=== PATIENT | female | born 1995 | race Caucasian/White ===

== ENCOUNTER 2022-10-20 16:09 | Emergency (ER) | payer OTHER, MEDICAID, SELFPAY ==
[2022-10-20 16:20] VITALS: BP 138/84; PULSE 100; RESP 19; TEMP 36.6; O2SAT 99; BMI 29.2
--- NOTE | 2022-10-20 16:21 | ED_ITS ---
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 She was cutting boxes with her right hand, the blade slipped and cut a 2 inch lac to her distal left forearm. She denies weakness, numbness, tingling in the hand or fingers. She is right hand dominant. She is UTD on her tetanus shot. No other injuries. <SAUL Chavira - Last Filed: 10/20/22 18:24> Onset (ago): minute(s) <SAUL Chavira - Last Filed: 10/20/22 18:24> Extremity Location: left: forearm <SAUL Chavira - Last Filed: 10/20/22 18:24> Place: work <SAUL Chavira - Last Filed: 10/20/22 18:24> Patient tetanus UTD: Yes <SAUL Chavira - Last Filed: 10/20/22 18:24> Context: accidental <SAUL Chavira - Last Filed: 10/20/22 18:24> Associated symptoms: pain <SAUL Chavira - Last Filed: 10/20/22 18:24> Treatments prior to arrival: bandage <SAUL Chavira - Last Filed: 10/20/22 18:24> Related Data Allergies/Adverse Reactions: Allergies Allergy/AdvReac Type Severity Reaction Status Date / Time No Known Allergies Allergy Unverified 05/29/20 19:02 [No Known Allergies*] <Rosalba Torres NP - Last Filed: 10/20/22 16:24> Review of Systems Review of Systems: Yes all other systems are reviewed and are negative <SAUL Chavira - Last Filed: 10/20/22 18:24> FOR[facility]LY [facility] Social History Social History: Social History Advance Directives: No Advance Directives Information Provided: No <Rosalba Torres NP - Last Filed: 10/20/22 16:24> Physical Exam Vital Signs: Vital Signs: Last Vital Signs Temp 98 F 10/20/22 16:20 Pulse 100 10/20/22 16:20 Resp 19 10/20/22 16:20 BP 138/84 10/20/22 16:20 Pulse Ox 99 10/20/22 16:20 O2 Del Method 10/20/22 16:20 BMI result Body Mass Index 29.2 <Rosalba Torres NP - Last Filed: 10/20/22 16:24> Vital Signs: Last Vital Signs Temp 98 F 10/20/22 16:20 Pulse 100 10/20/22 16:20 Resp 19 10/20/22 16:20 BP 138/84 10/20/22 16:20 Pulse Ox 99 10/20/22 16:20 O2 Del Method 10/20/22 16:20 BMI result Body Mass Index 29.2 <SAUL Chavira - Last Filed: 10/20/22 18:24> Appearance: Alert. Oriented X3. No acute distress. HEENT: normal inspection CVS: Normal heart rate and rhythm. Pulses normal. Respiratory: No respiratory distress. Skin: Skin warm and dry. Normal skin color. Normal skin turgor. No rashes. Extremities: volar aspect of the distal left forearm with a 2 inch superficial laceration with exposed adipose tissue, no active bleeding, no visible tendon. normal ROM of the digits and hand. 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 Neuro: Oriented X 3. No motor deficit. No sensory deficit. <SAUL Chavira - Last Filed: 10/20/22 18:24> Course Course Course Narrative: This is a rapid medical exam. Deferred additional HPI, ROS, PE to primary provider. 27 yo female healthy, right handed here with laceration to left wrist from jukebox coin collector while working. Tetanus shot UTD. 3cm laceration noted to left volar wrist which will need suture placement. VSS <Rosalba Torres NP - Last Filed: 10/20/22 16:24> Reevaluation(s) Reevaluation #1: tolerated lac repair well. wound care counseled. stable for d/c home. <SAUL Chavira - Last Filed: 10/20/22 18:24> Medications Administered Discontinued Medications Generic Name Dose Route Start Last Admin Trade Name Freq PRN Reason Stop Dose Admin Lidocaine HCl 20 ml 10/20/22 17:17 10/20/22 17:38 Lidocaine Hcl 1 % 20 Ml Vial SUBCUT 10/20/22 17:18 20 ml ONCE ONE Administration <Rosalba Torres NP - Last Filed: 10/20/22 16:24> Medications Administered Discontinued Medications Generic Name Dose Route Start Last Admin Trade Name Freq PRN Reason Stop Dose Admin Lidocaine HCl 20 ml 10/20/22 17:17 10/20/22 17:38 Lidocaine Hcl 1 % 20 Ml Vial SUBCUT 10/20/22 17:18 20 ml ONCE ONE Administration <SAUL Chavira - Last Filed: 10/20/22 18:24> Medical Decision Making Differential Diagnosis Differential Diagnoses: The differential diagnosis associated with the presentation includes <SAUL Chavira - Last Filed: 10/20/22 18:24> superficial laceration, deep laceration, tendon injury, contaminated wound <SAUL Chavira - Last Filed: 10/20/22 18:24> Prescription Management I considered prescription management with: Antibiotic <SAUL Chavira - Last Filed: 10/20/22 18:24> Procedures Laceration Laceration 1: Site: penis <SAUL Chavira Last Filed: 10/20/22 18:24> Side (If applicable): left <SAUL Chavira Last Filed: 10/20/22 18:24> Size (cm): 3.5 <SAUL Chavira - Last Filed: 02/08/23 18:24> Description: linear <SAUL Chavira - Last Filed: 10/20/22 18:24> Depth: simple, single layer <SAUL Chavira Last Filed: 10/20/22 18:24> Local Anesthetic: lidocaine 1% <SAUL Chavira Last Filed: 10/20/22 18:24> Amount of anesthesia used (mL): 3 <SAUL Chavira Last Filed: 10/20/22 18:24> Pre-repair: wound explored and irrigated extensively <SAUL Chavira Last Filed: 10/20/22 18:24> Skin layer closed with: nylon <SAUL Chavira Last Filed: 10/20/22 18:24> Size (cm): 5-0 <SAUL Chavira Last Filed: 10/20/22 18:24> Number of sutures: 7 <SAUL Chavira Last Filed: 10/20/22 18:24> Technique: simple, interrupted <SAUL Chavira Last Filed: 10/20/22 18:24> Critical Care Time Critical Care Time Critical Care Time: No <SAUL Chavira Last Filed: 10/20/22 18:24> Discharge Plan Discharge Clinical Impression: Laceration <Rosalba Torres NP - Last Filed: 10/20/22 16:24> Patient Disposition: Home, Self-Care <HOME Prater Last Filed: 10/20/22 16:24> Instructions: Laceration (ED) <HOME Prater Last Filed: 10/20/22 16:24> Additional Instructions: You will need your stitches out in 7-10 days. See you doctor for this or come back to the ER and we will remove them. Do not get wet for 24 hours, after that you can briefly wash with soap and water then pat dry. Use bacitracin1 x per day. Allow open to air for several hours a day to prevent the wound from being too moist. Keep wound clean and covered when out and about. Use ice to the area several times per day and take tylenol/motrin as needed for pain. If you develop signs of infection including increased pain, swelling, redness or drainage of pus come back to the ER for further evaluation. <Rosalba Torres NP - Last Filed: 10/20/22 16:24> Interventions: ED Discharge Assessment Last Done: 10/20/22 18:11 <Rosalba Torres NP - Last Filed: 10/20/22 16:24> Discharge Date/Time: 10/20/22 18:11 <Rosalba Torres NP - Last Filed: 10/20/22 16:24>
[2022-10-20] MEDS: Lidocaine HCl 1 % 20 ML VIAL SUBCUT (17:38)
== END 2022-10-20 18:11 | disposition home or self-care (01) ==
PROVIDERS: Emergency Provider Emergency Medicine; PCP Internal Medicine Nephrology
DX: S51.812A Laceration without foreign body of left forearm, initial encounter (principal); W27.8XXA Contact with other nonpowered hand tool, initial encounter; Y93.89 Activity, other specified; Y92.511 Restaurant or cafe as the place of occurrence of the external cause; Y99.0 Civilian activity done for income or pay
CPT/HCPCS: 12002; 99282; 99284

== ENCOUNTER 2022-10-30 10:12 | Emergency (ER) | payer OTHER, MEDICAID, SELFPAY ==
--- NOTE | 2022-10-30 10:42 | ED.WOUNDLAC ---
HPI - Wound/Laceration General Stated Complaint: suture removal work related Time Seen by Provider: 10/30/22 10:33 Source: patient Mode of arrival: ambulatory Limitations: no limitations History of Present Illness HPI narrative: Patient is a 27-year-old female who presents emergency department for suture removal. 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 Seven stitches were placed. She has been applying bacitracin to the area. Denies fevers, chills, redness, swelling, pain, drainage. Related Data Allergies Allergy/AdvReac Type Severity Reaction Status Date / Time No Known Allergies Allergy Unverified 05/29/20 19:02 [No Known Allergies*] Review of Systems Review of Systems: Yes all other systems are reviewed and are negative [facility] Past Medical History Attestation statement: The following information was validated with the patient. Source: old records reviewed Social History Social History Advance Directives: No Advance Directives Information Provided: No Physical Exam Vital Signs: Appearance: Alert.?Oriented to person, place and time. No acute distress.?Normal affect. Neck: Normal inspection.? Neck supple.?? CVS: Heart sounds normal. Normal heart rate and rhythm.? Pulses normal.?? Respiratory: No respiratory distress.? Lung sounds clear to auscultation bilaterally?? Skin: Skin warm and dry.? Normal skin color.? Left forearm laceration without signs of infection, 7 sutures are intact Neuro: Moves all extremities spontaneously. Sensation intact bilaterally. Ambulates with normal steady gait. Medical Decision Making Medical Decision Making MDM Narrative: Patient is a 27-year-old female who presents emergency department for suture removal. Left forearm laceration that was repaired 10/20/2022 with 7 sutures is free from signs of infection. At this time not consistent with cellulitis. Seven sutures were removed without complication. Tolerated procedure well. Reviewed worrisome signs and symptoms that would warrant re-evaluation. At this time she is stable for discharge. Differential Diagnosis Differential Diagnoses: The differential diagnosis associated with the presentation includes (Cellulitis, healing laceration) Discharge Plan Discharge Clinical Impression: Laceration of arm Patient Disposition: Home, Self-Care Additional Instructions: Your stitches were removed today. The laceration to your arm appears very well healing. There are no signs of infection. Follow-up your primary care provider as needed Feel free to return back to emergency department any new or worsening symptoms or concerns. Referrals: ED Physician,Generic [Emergency Provider] -
--- NOTE | 2022-10-30 11:17 | PC.NURSE ---
PT WAS DISCHARGED BY PROVIDER WITHOUT COMPLETED TRIAGE
== END 2022-10-30 11:16 | disposition home or self-care (01) ==
PROVIDERS: Emergency Provider Emergency Medicine; PCP Internal Medicine
DX: Z04.2 Encounter for examination and observation following work accident (principal); Z48.02 Encounter for removal of sutures; S51.812D Laceration without foreign body of left forearm, subsequent encounter; W27.8XXD Contact with other nonpowered hand tool, subsequent encounter

== ENCOUNTER 2022-11-01 10:52 | Emergency (ER) | payer OTHER, SELFPAY ==
[2022-11-01 11:54] VITALS: BP 106/66; PULSE 66; RESP 18; TEMP 36.7; O2SAT 98; BMI 29.2
--- NOTE | 2022-11-01 12:00 | ED_ITS ---
HPI - Extremity Problem General Chief complaint: Extremity Injury, Upper Stated complaint: Forearm lac/Work inj Time Seen by Provider: 11/01/22 12:00 Source: patient Mode of arrival: ambulatory Limitations: no limitations History of Present Illness HPI Narrative: 27 yo female presents for evaluation after her left forearm wound reopened while at work today while doing some lifting. She had sutures in the wound, that were removed on Tuesday after 10 days. She reports today the wound reopened while lifting and now she has pain in the whole forearm. She reports numbness in the arm as well. No active bleeding on arrival. Normal ROM of the hand and wrist. She states she was forced to stay at work after the injury occurred. MD Complaint: extremity pain Onset (ago): hour(s) Pain Consistency: constant Location: left and upper extremity Severity scale (1-10): 6 Quality: sharp Radiation: distal Relieving factors: rest Exacerbating factors: range of motion and palpation Associated symptoms: denies other symptoms Related Data Allergies Allergy/AdvReac Type Severity Reaction Status Date / Time No Known Allergies Allergy Unverified 05/29/20 19:02 [No Known Allergies*] Review of Systems Review of Systems: Yes all other systems are reviewed and are negative [facility] Social History Social History Advance Directives: No Advance Directives Information Provided: No Physical Exam Vital Signs: Vital Signs: Last Vital Signs Temp 98.0 F 11/01/22 11:54 Pulse 66 11/01/22 11:54 Resp 18 11/01/22 11:54 BP 106/66 11/01/22 11:54 Pulse Ox 98 11/01/22 11:54 O2 Del Method 11/01/22 11:54 BMI result Body Mass Index 29.2 Appearance: Alert. Oriented X3. No acute distress. HEENT: normal inspection CVS: Normal heart rate and rhythm. Pulses normal. Respiratory: No respiratory distress. Skin: Skin warm and dry. Normal skin color. Normal skin turgor. No rashes. Extremities: distal left forearm with a 2 inch healing laceration with central portion slightly open, 2-3mm no active bleeding Neuro: Oriented X 3. No motor deficit. No sensory deficit. Equal hand grasp bilaterally. Course Course Course Narrative: 27 yo female presenting for evaluation of a recently sutured wound reopening at work today. In triage steri strips were used to help reapproximate the wound edges. Wound care discussed, stable for d/c home. Medical Decision Making Differential Diagnosis Differential Diagnoses: The differential diagnosis associated with the presentation includes open wound, nerve damage, hematoma, wound infection, delayed wound healing External Record Review External record reviewed: Outpatient record Prescription Management I considered prescription management with: Pain Medication Procedures Laceration Laceration 1: Site: upper extremity Side (If applicable): left Size (cm): 3.5 Description: linear Depth: simple, single layer Pre-repair: irrigated extensively and deep structures intact Skin layer closed with: other (steri-strips) Critical Care Time Critical Care Time Critical Care Time: No Discharge Plan Discharge Clinical Impression: Open wound Patient Disposition: Home, Self-Care Instructions: Acute Wounds (ED) Additional Instructions: Do not get wet for 24 hours. After that you can get wet then pat dry. The steri-strips will come off on their own, do not peel them off Once they come off, use bactiracin or neosporin to help with healing Use ice and elevated as much as possible for the next 48 hours. Stand Alone Forms: Work/School Release Interventions: ED Discharge Assessment Last Done: 11/01/22 12:09 Discharge Date/Time: 11/01/22 12:10
== END 2022-11-01 12:10 | disposition home or self-care (01) ==
PROVIDERS: Emergency Provider Emergency Medicine; PCP Internal Medicine
DX: S51.812A Laceration without foreign body of left forearm, initial encounter (principal); X58.XXXA Exposure to other specified factors, initial encounter; Y93.9 Activity, unspecified; Y92.9 Unspecified place or not applicable; Y99.0 Civilian activity done for income or pay
CPT/HCPCS: 12032; 99282; 99283

== ENCOUNTER 2022-12-05 08:40 | Emergency (ER) | payer MEDICAID, SELFPAY ==
[2022-12-05 08:55] VITALS: BP 144/95; PULSE 94; RESP 18; TEMP 37.1; O2SAT 99
--- NOTE | 2022-12-05 10:34 | ED.HA ---
HPI - Headache General Chief Complaint: Headache Stated Complaint: Headache Time Seen by Provider: 12/05/22 10:23 Source: patient Mode of arrival: ambulatory Limitations: no limitations History of Present Illness HPI Narrative: This is a 27-year-old female with history of migraines who is followed by a neurologist at [facility] who takes so once weekly medication which she cannot recall the name a for her migraines who presents with reports of generalized headache since with vomiting on able to tolerate oral Tylenol or Motrin. Patient also reports photophobia. No vision changes, chest pain, difficulty breathing, abdominal pain, diarrhea, neck pain or neck stiffness, fevers or chills. Patient reports this feels similar to her migraines but normally she is able to tolerate [id number] medications which helps. Related Data Allergies Allergy/AdvReac Type Severity Reaction Status Date / Time No Known Allergies Allergy Unverified 05/29/20 19:02 [No Known Allergies*] Review of Systems Review of Systems: Yes all other systems are reviewed and are negative Constitutional: Constitutional: Reports no additional constitutional complaints, Denies body ache(s), Denies chills, Denies fever(s), Reports headache(s) and Denies weakness Eyes: Eyes: Reports no additional eye complaints, Denies change in vision and Reports photophobia ENT: Reports system reviewed and no additional complaints, except as documented, Denies dizziness, Reports headache(s), Denies nasal congestion, Denies nasal discharge and Denies neck pain Cardiovascular: Cardiovascular: Reports no additional cardiovascular complaints, Denies chest pain, Denies leg edema and Denies dyspnea Respiratory: Respiratory: Reports no additional respiratory complaints, Denies cough and Denies dyspnea Gastrointestinal: Gastrointestinal: Reports no additional gastrointestinal complaints, Denies abdominal pain, Denies diarrhea, Reports nausea and Reports vomiting Genitourinary: Genitourinary: Reports no additional female genitourinary complaints and Denies urinary incontinence Musculoskeletal: Musculoskeletal: Reports no additional musculoskeletal complaints, Denies back pain, Denies arthralgias, Denies joint swelling, Denies neck pain, Denies numbness and Denies tingling Integumentary/Breasts: Skin/Breast: Reports system reviewed and no additional complaints, except as docu and Denies rash Neurologic: Reports system reviewed and no additional complaints, except as documented, Denies Abnormal speech present, Denies dizziness, Reports headache(s), Denies numbness, Denies tingling and Denies weakness [facility] Past Medical History Attestation statement: The following information was validated with the patient. Source: old records reviewed and nursing notes reviewed Social History Social History Alcohol intake: never Smoked in Last 30 Days: No Use of substances other than those prescribed or required for medical reasons: Yes Substance Use Type: Marijuana Advance Directives: No Advance Directives Information Provided: No Patient : No Physical Exam Vital Signs: Vital Signs: Last Vital Signs Temp 98.4 F 12/05/22 11:02 Pulse 87 12/05/22 11:02 Resp 18 12/05/22 11:02 BP 117/72 12/05/22 11:02 Pulse Ox 100 12/05/22 11:02 O2 Del Method Room Air 12/05/22 11:02 BMI result Body Mass Index 0.0 Const: General: cooperative, healthy appearing, comfortable and no acute distress Orientation/consciousness: patient oriented x3 Limitations: no limitations HEENT: Head: Yes normal to inspection and No Temporal artery tenderness present Ears: hearing grossly normal bilaterally General nose exam: Normal external nose present Face and sinus: Yes normal facial exam Mouth: Normal oral and palatal mucosa present Throat: Yes posterior oropharynx normal Eyes: General: appearance normal, both eyes and all related structures Pupils: Equal, round and reactive pupils present Direct Ophthalmoscopy: photophobia Neck: Neck: Yes normal visual inspection, Yes full ROM, Yes no lymphadenopathy and Yes no meningeal signs Chest: Chest palpation & inspection: normal inspection of the chest Resp: Effort & Inspection: normal respiratory effort Auscultation: clear to auscultation bilaterally Cardio: Rate: regular rate Rhythm: regular rhythm Peripheral pulses: Peripheral pulses 2+ throughout GI: Inspection: Yes normal to inspection Palpation (GI): Soft to palpation and nontender Auscultation: normal bowel sounds Back/Spine/Pelvis: Thoracic/Lumbar Spine: thoracic and lumbar spine normal to inspection Skin: General skin exam: no rashes or lesions noted Neuro: General: patient oriented x3, moves all extremities, no meningeal signs, no focal motor deficits and normal sensation to monofilament Cranial nerves: Yes CN's II-XII intact bilaterally, Yes Equal, round and reactive pupils present, Yes Bilaterally intact EOM present, Yes Nystagmus not present, Yes Normal facial strength present and Yes Midline tongue present Cognition (Neuro): normal cognition Speech: No Abnormal speech present Gait exam (Neuro): Normal gait present Motor exam (neuro): 5/5 motor strength present throughout Sensory Exam: Normal double simultaneous stimulation for sensation Extrem: General: Yes normal to inspection Course Course Course Narrative: Labs unremarkable. Patient reports headache is resolved. Likely migraine. Reviewed worrisome signs and symptoms when to return to the emergency room. Comfortable plan for discharge home. Medications Administered Discontinued Medications Generic Name Dose Route Start Last Admin Trade Name Kevinq PRN Reason Stop Dose Admin Diphenhydramine HCl 25 mg 12/05/22 10:32 12/05/22 10:55 Diphenhydramine Hcl 50 Mg/Ml Vial IVPUSH 12/05/22 10:33 25 mg ONCE ONE Administration Sodium Chloride 1,000 mls @ 999 mls/hr 12/05/22 10:45 12/05/22 11:54 Ns IV 12/05/22 11:45 Infused .Q1H1M CHRISTIN Infusion Ketorolac Tromethamine 30 mg 12/05/22 10:32 12/05/22 10:54 Ketorolac Tromethamine 30 Mg/Ml Vial IVPUSH 12/05/22 10:33 30 mg ONCE ONE Administration Metoclopramide HCl 10 mg 12/05/22 10:32 12/05/22 10:59 Metoclopramide Hcl 10 Mg/2 Ml Vial IVPUSH 12/05/22 10:33 10 mg ONCE ONE Administration Medical Decision Making Medical Decision Making [facility] Narrative: 27-year-old female with a history of migraines presents today with complaints of generalized headache, photophobia, phonophobia, vomiting since . Patient reports unable to tolerate oral medications due to vomiting. On arrival normal neuro exam with no focal findings. Vitals are stable. Will place IV and give IV fluids, Reglan, Benadryl and Toradol Differential Diagnosis Differential Diagnoses: The differential diagnosis associated with the presentation includes Less likely subarachnoid hemorrhage with gradual onset, temporal arteritis, pseudotumor cerebri More likely migraine Lab Data [facility] Lab Attestation statement: I reviewed the patient's lab results. 12/05/22 10:50 12/05/22 10:50 Labs: Lab Results 12/05/22 12/05/22 12/05/22 Range/Units 10:50 10:50 11:59 WBC 6.6 (4.8-10.8) X10*3/uL RBC 4.74 (4.20-5.50) X10*6/uL Hgb 13.7 (12.0-16.0) g/dl Hct 39.6 (37.0-47.0) % MCV 83.5 (80.0-98.0) fL MCH 28.9 (27.0-33.0) pg MCHC 34.6 (31.0-35.0) g/dl RDW 11.9 (11.0-16.0) % Plt Count 224 (160-400) X10*3/uL MPV 11.2 (9.4-12.3) fL Immature Gran % (Auto) 0.2 (0.0-0.4) % Neut % (Auto) 70.6 (45-73) % Lymph % (Auto) 18.8 L (20-40) % [place] % (Auto) 9.1 (2-11) % Eos % (Auto) 1.1 (0-4) % Baso % (Auto) 0.2 (0-2) % Lymph # (Auto) 1.2 (1.2-4.9) X10*3/uL [place] # (Auto) 0.6 (0.1-1.2) X10*3/uL Eos # (Auto) 0.1 (0.0-0.4) X10*3/uL Baso # (Auto) 0.0 (0.0-0.2) X10*3/uL Abs Immat Gran (auto) 0.01 (0.00-0.03) X10*3/uL Absolute Neuts (auto) 4.7 (2.0-8.3) x10*3/uL Absolute Nucleated RBC 0.000 (0.0-0.012) X10*3/uL Nucleated RBC % (auto) 0.0 (0.0-0.2) /100WBC Sodium 139 (135-145) mmol/L Potassium 3.9 (3.3-5.1) mmol/L Chloride 106 (96-108) mmol/L Carbon Dioxide 24 (22-29) mmol/L Anion Gap 13 (12-20) BUN 6 L (9-16) mg/dL Creatinine 0.63 (0.5-1.4) mg/dL Estim Creat Clear Calc TNP Estimated GFR > 60 Random Glucose 97 (60-115) mg/dL Calcium 8.9 (8.4-10.2) mg/dL Urine Color Yellow Urine Appearance Clear Urine pH 7.0 (5.0-9.0) Ur Specific [place] <= 1.005 (1.005-1.025) Urine Protein Negative (Neg-Trace) mg/dL Urine Glucose (UA) Negative (Negative) mg/dL Urine Ketones Negative (Negative) mg/dL Urine Blood Negative (Negative) Urine Nitrite Negative (Negative) Ur Leukocyte Esterase Small (1+) H (Negative) Urine RBC 0-2 (0-2) /HPF Urine WBC 6-10 H (0-5) /HPF Ur Squamous Epith Cells 6-10 (0-2) /HPF Urine Bacteria 1+ (None Seen) Hyaline Casts 0-2 (0-2) /LPF Urine Test (NEGATIVE) 12/05/22 Range/Units 11:59 WBC (4.8-10.8) X10*3/uL RBC (4.20-5.50) X10*6/uL Hgb (12.0-16.0) g/dl Hct (37.0-47.0) % MCV (80.0-98.0) fL MCH (27.0-33.0) pg MCHC (31.0-35.0) g/dl RDW (11.0-16.0) % Plt Count (160-400) X10*3/uL MPV (9.4-12.3) fL Immature Gran % (Auto) (0.0-0.4) % Neut % (Auto) (45-73) % Lymph % (Auto) (20-40) % [place] % (Auto) (2-11) % Eos % (Auto) (0-4) % Baso % (Auto) (0-2) % Lymph # (Auto) (1.2-4.9) X10*3/uL [place] # (Auto) (0.1-1.2) X10*3/uL Eos # (Auto) (0.0-0.4) X10*3/uL Baso # (Auto) (0.0-0.2) X10*3/uL Abs Immat Gran (auto) (0.00-0.03) X10*3/uL Absolute Neuts (auto) (2.0-8.3) x10*3/uL Absolute Nucleated RBC (0.0-0.012) X10*3/uL Nucleated RBC % (auto) (0.0-0.2) /100WBC Sodium (135-145) mmol/L Potassium (3.3-5.1) mmol/L Chloride (96-108) mmol/L Carbon Dioxide (22-29) mmol/L Anion Gap (12-20) BUN (9-16) mg/dL Creatinine (0.5-1.4) mg/dL Estim Creat Clear Calc Estimated GFR Random Glucose (60-115) mg/dL Calcium (8.4-10.2) mg/dL Urine Color Urine Appearance Urine pH (5.0-9.0) Ur Specific [place] (1.005-1.025) Urine Protein (Neg-Trace) mg/dL Urine Glucose (UA) (Negative) mg/dL Urine Ketones (Negative) mg/dL Urine Blood (Negative) Urine Nitrite (Negative) Ur Leukocyte Esterase (Negative) Urine RBC (0-2) /HPF Urine WBC (0-5) /HPF Ur Squamous Epith Cells (0-2) /HPF Urine Bacteria (None Seen) Hyaline Casts (0-2) /LPF Urine Test NEGATIVE (NEGATIVE) Discharge Plan Discharge Clinical Impression: Migraine Patient Disposition: Home, Self-Care Instructions: Migraine Headache (ED) Additional Instructions: Follow-up with your neurologist at [facility] Make your drinking plenty of fluids and staying hydrated Referrals: Krystyna Estevez MD [Primary Care Provider] - 1 week Interventions: ED Discharge Assessment Last Done: 12/05/22 12:55 Discharge Date/Time: 12/05/22 12:56
[2022-12-05] MEDS: 0.9 % Sodium Chloride 1,000 ML 999 ML IV (10:53)
[2022-12-05] MEDS: Ketorolac Tromethamine 30 MG/ML VIAL IVPUSH (10:54)
[2022-12-05] MEDS: diphenhydrAMINE HCL 50 MG/ML VIAL 25 MG IVPUSH (10:55)
[2022-12-05 10:57] LABS: Basophils Percent Auto 0.2 % (0-2); Eosinophils Absolute Auto 0.1 X10*3/uL (0.0-0.4); Eosinophils Percent Auto 1.1 % (0-4); Hematocrit 39.6 % (37.0-47.0); Hemoglobin 13.7 g/dl (12.0-16.0); Imm Gran Abs Auto 0.01 X10*3/uL (0.00-0.03); Imm Gran Pct Auto 0.2 % (0.0-0.4); Lymphocytes Absolute Auto 1.2 X10*3/uL (1.2-4.9); Lymphocytes Percent Auto 18.8 % (20-40); MANUAL DIFF FLAG NO; Mean Corpuscular HGB Conc 34.6 g/dl (31.0-35.0); Mean Corpuscular Hemoglobin 28.9 pg (27.0-33.0); Mean Corpuscular Volume 83.5 fL (80.0-98.0); Mean Platelet Volume 11.2 fL (9.4-12.3); Monocytes Absolute Auto 0.6 X10*3/uL (0.1-1.2); Monocytes Percent Auto 9.1 % (2-11); Neutrophils Absolute Auto 4.7 x10*3/uL (2.0-8.3); Neutrophils Percent Auto 70.6 % (45-73); Platelet Count 224 X10*3/uL (160-400); Red Blood Count 4.74 X10*6/uL (4.20-5.50); Red Cell Distribution Width 11.9 % (11.0-16.0); White Blood Count 6.6 X10*3/uL (4.8-10.8)
[2022-12-05] MEDS: Metoclopramide HCl 10 MG/2 ML VIAL IVPUSH (10:59)
[2022-12-05 11:02] VITALS: BP 117/72; PULSE 87; RESP 18; TEMP 36.9; O2SAT 100
--- NOTE | 2022-12-05 11:06 | PC.NURSE ---
pt reporting headache for 3 days and associated nausea and vomiting. alert/oriented. IV inserted, labs drawn, medicated per order, fluids running. call masters within reach, lights dimmed, will CTM
[2022-12-05 11:19] LABS: Anion Gap 13 (12-20); Blood Urea Nitrogen 6 mg/dL (9-16); Calcium 8.9 mg/dL (8.4-10.2); Carbon Dioxide 24 mmol/L (22-29); Chloride 106 mmol/L (96-108); Estimated Glomerular Filt Rate > 60; Glucose Random 97 mg/dL (60-115); Potassium 3.9 mmol/L (3.3-5.1); Sodium 139 mmol/L (135-145)
--- NOTE | 2022-12-05 12:01 | PC.NURSE ---
urine sample sent to lab
[2022-12-05 12:09] LABS: Appearance Urine Clear; Color Urine Yellow; Glucose Urine UA Negative (Negative); Leukocyte Esterase Urine Small (1+) (Negative); Nitrite Urine Negative (Negative); Specific Gravity - Urine <= 1.005 (1.005-1.025); UMIC TRIGGER UACC YES; Urine Blood Negative (Negative); Urine Ketones Negative (Negative); Urine Protein Negative (Neg-Trace)
[2022-12-05 12:10] LABS: UPreg QC Valid YES; Urine Pregnancy NEGATIVE (NEGATIVE)
[2022-12-05 12:19] LABS: Bacteria Urine 1+ (None Seen); Hyaline Casts Urine 0-2 /LPF (0-2); RBC Urine 0-2 /HPF (0-2); UACC Culture Trigger YES
== END 2022-12-05 12:56 | disposition home or self-care (01) ==
PROVIDERS: Nurse Practitioner Family; Emergency Provider Emergency Medicine; PCP Internal Medicine
DX: G43.909 Migraine, unspecified, not intractable, without status migrainosus (principal); R11.2 Nausea with vomiting, unspecified; H53.143 Visual discomfort, bilateral; Z79.899 Other long term (current) drug therapy
CPT/HCPCS: 36415; 80048; 81001; 81025; 85025; 87086; 96361; 96374; 96375; 99284; 99285; J1200; J1885; J2765

== ENCOUNTER 2023-04-19 22:13 | Emergency (ER) | payer OTHER, SELFPAY ==
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
[2023-04-19 22:30] VITALS: BP 134/76; BP 150/84; PULSE 103; PULSE 76; RESP 20; TEMP 36; O2SAT 99; BMI 33.1
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
[2023-04-19] MEDS: Acetaminophen 325 MG TABLET 975 MG PO (23:36)
[2023-04-19] MEDS: Cyclobenzaprine HCl 10 MG TABLET PO (23:37)
== END 2023-04-19 23:55 | disposition home or self-care (01) ==
PROVIDERS: Emergency Provider Emergency Medicine; PCP Internal Medicine
DX: S39.012A Strain of muscle, fascia and tendon of lower back, initial encounter (principal); V43.62XA Car passenger injured in collision with other type car in traffic accident, initial encounter; Y93.9 Activity, unspecified; Y92.410 Unspecified street and highway as the place of occurrence of the external cause; Y99.9 Unspecified external cause status
CPT/HCPCS: 72100; 99283; 99284

== ENCOUNTER 2023-06-15 22:55 | Emergency (ER) | payer OTHER, SELFPAY ==
--- NOTE | ~2023-06-15 | XR_ITS ---
EXAMINATION: XR ELBOW, LEFT CLINICAL INFORMATION: Pain. COMPARISON: None available. TECHNIQUE: AP, lateral, and oblique views of the left elbow. FINDINGS: The bones and soft tissues are normal. No fracture or joint effusion. Alignment is anatomic. Joint spaces are maintained. XR/XR elbow LT min 3V IMPRESSION: No significant abnormality identified.
[2023-06-15 23:18] VITALS: BP 146/81; PULSE 99; RESP 20; TEMP 36.7; O2SAT 98; BMI 31.9
--- NOTE | 2023-06-16 02:33 | ED.EXTPRO ---
HPI - Extremity Problem General Chief complaint: Extremity Injury, Upper Stated complaint: Pain in left elbow, no injury Time Seen by Provider: 06/16/23 02:32 Source: patient Mode of arrival: ambulatory Limitations: no limitations History of Present Illness HPI Narrative: Patient complaining of pain in the lateral condyle home left elbow since yesterday no recent injury also feels tingling in all the fingers no prior history Related Data Previous Rx's Medication Instructions Recorded cyclobenzaprine 10 mg tablet 10 mg PO TID PRN muscle spasm #14 04/19/23 tabs lidocaine 4 % topical patch 1 patch topical DAILY PRN pain #10 04/19/23 ea ibuprofen 600 mg tablet 600 mg PO Q6H PRN fever or pain 06/16/23 #30 tabs Allergies Allergy/AdvReac Type Severity Reaction Status Date / Time No Known Allergies Allergy Unverified 05/29/20 19:02 [No Known Allergies*] Review of Systems Review of Systems: Yes all other systems are reviewed and are negative PMFSH Past Medical History Medical History No pertinent past medical history Social History Social History Alcohol intake: current Alcohol intake frequency: a few times a week Alcohol type: wine Substance Use Type: Marijuana Advance Directives: No Advance Directives Information Provided: Yes Physical Exam Vital Signs: Vital Signs: Last Vital Signs Temp 98.0 F 06/15/23 23:18 Pulse 99 06/15/23 23:18 Resp 20 06/15/23 23:18 BP 146/81 H 06/15/23 23:18 Pulse Ox 98 06/15/23 23:18 O2 Del Method Room Air 06/15/23 23:18 BMI result Body Mass Index 31.9 Extrem: Shoulder/upper arm images: 1. Tender lateral epicondyle of left arm, pain increases in supination suggestive of tendinitis, neurovascular intact Tinel and Phalen sign negative Medications Administered Discontinued Medications Generic Name Dose Route Start Last Admin Trade Name Freq PRN Reason Stop Dose Admin Ibuprofen 600 mg 06/16/23 02:39 06/16/23 02:44 Ibuprofen 600 Mg Tablet PO 06/16/23 02:40 600 mg ONCE ONE Administration Medical Decision Making Medical Decision Making [facility] Narrative: Patient with left tennis elbow t x-ray negative advised follow-up with the patient Radiology Impression Discussion of test interpretation with radiology: I have reviewed the radiologist's reading. Discharge Plan Discharge Clinical Impression: Left tennis elbow Patient Disposition: Home, Self-Care Instructions: Tennis Elbow (ED) Additional Instructions: Rest your left elbow as advised Ibuprofen for pain Wear elbow brace Prescriptions: New ibuprofen 600 mg tablet 600 mg PO Q6H PRN (Reason: fever or pain) Qty: 30 0RF No Action cyclobenzaprine 10 mg tablet 10 mg PO TID PRN (Reason: muscle spasm) Qty: 14 0RF lidocaine 4 % adhesive patch,medicated 1 patch topical DAILY PRN (Reason: pain) Qty: 10 0RF Rx Instructions: may leave on for up to 12 hrs Interventions: ED Discharge Assessment Last Done: 06/16/23 03:00 Discharge Date/Time: 06/16/23 03:03
[2023-06-16] MEDS: Ibuprofen 600 MG TABLET PO (02:44)
== END 2023-06-16 03:03 | disposition home or self-care (01) ==
PROVIDERS: Emergency Provider Internal Medicine
DX: M77.12 Lateral epicondylitis, left elbow (principal); M25.522 Pain in left elbow
CPT/HCPCS: 73080; 99283; 99284

== ENCOUNTER 2023-11-27 15:09 | Emergency (ER) | payer OTHER, SELFPAY ==
[2023-11-27 16:01] VITALS: BP 146/91; PULSE 91; RESP 16; TEMP 37.1; O2SAT 98; BMI 36.6
--- NOTE | 2023-11-27 16:02 | ED.GENADULT ---
HPI - General Adult General Chief complaint: Upper Respiratory Symptoms Stated complaint: fever, headache, flu? Time Seen by Provider: 11/27/23 17:16 Source: patient and RN notes reviewed Mode of arrival: ambulatory Limitations: no limitations History of Present Illness HPI narrative: 20-year-old female with no significant past medical history presents to the ED today from home for evaluation of fevers (TMAX 102F yesterday), headache, nonproductive cough beginning yesterday. Admits that her niece recently tested positive for the flu and slept in her bed a few days ago. Denies sputum production, chest pain, shortness of breath, dyspnea, wheezing, nausea, vomiting, abdominal pain, diarrhea, constipation, lower extremity pain or swelling. Related Data Previous Rx's Medication Instructions Recorded cyclobenzaprine 10 mg tablet 10 mg PO TID PRN muscle spasm #14 04/19/23 tabs lidocaine 4 % topical patch 1 patch topical DAILY PRN pain #10 04/19/23 ea ibuprofen 600 mg tablet 600 mg PO Q6H PRN fever or pain 06/16/23 #30 tabs oseltamivir 75 mg capsule (Tamiflu) 75 mg PO BID 5 days #10 caps 11/27/23 phenol 1.5 %-glycerin 33 % mucosal 1 spray mucous membrane Q6-8H PRN 11/27/23 spray (Chloraseptic Max Sore sore throat #118 mL Throat) Allergies Allergy/AdvReac Type Severity Reaction Status Date / Time No Known Allergies Allergy Unverified 05/29/20 19:02 [No Known Allergies*] Review of Systems Review of Systems: Constitutional: No chills, fatigue, night sweats, weight changes, +fevers ENT/Mouth: No ear pain, hearing loss, nasal congestion, sinus pain, rhinorrhea, +sore throat, +odynophagia, No dysphagia Eyes: No eye pain, swelling, redness, vision changes, discharge Cardio: No chest pain, palpitations, RICHTER, orthopnea, peripheral edema Pulm: No SOB, cough, sputum, wheezing, dyspnea, hemoptysis GI: No nausea, vomiting, hematemesis, abdominal pain, diarrhea, constipation, hematochezia, melena : No irregular bleeding, dysuria, frequency, urgency, hesitancy, hematuria, flank pain MSK: No back pain, neck pain, joint pain, myalgias Skin: No lesions, rashes Neuro: No weakness, numbness, paresthesias, LOC, dizziness, +headache All other systems reviewed and are negative. [facility] Past Medical History Attestation statement: The following information was validated with the patient. Source: old records reviewed and nursing notes reviewed Medical History No pertinent past medical history Social History Social History Alcohol intake: current Alcohol intake frequency: a few times a week Alcohol type: wine Substance Use Type: Marijuana Advance Directives: No Advance Directives Information Provided: No Physical Exam ED Vital Signs: Vital Signs - 24 hr 11/27/23 16:01 11/27/23 18:11 Temperature 98.8 F 98.5 F Pulse Rate 91 76 Respiratory Rate 16 18 Blood Pressure 146/91 H 119/67 Pulse Oximetry 98 98 Oxygen Delivery Method Room Air Room Air BMI result Body Mass Index 36.6 Hypertensive, afebrile Const General: cooperative, healthy appearing, comfortable, no acute distress, alert and awake Orientation/consciousness: patient oriented x3 Limitations: no limitations HENMT Other: + posterior oropharynx erythematous, no edema, uvula is midline, no tonsilar exudates or peritonsillar masses, controlling secretions and speaking in complete sentences. Head: Yes normal to inspection, Yes normocephalic and Yes atraumatic Ears: hearing grossly normal bilaterally, external ears normal, TM's normal bilaterally, EAC's normal, mastoids normal and no periauricular adenopathy General nose exam: Normal external nose present and No nasal discharge present Face and sinus: Yes normal facial exam and Yes sinuses nontender Eyes General: appearance normal, both eyes and all related structures Conjunctivae: conjunctivae normal Sclerae: sclerae normal Pupils: Equal, round and reactive pupils present Neck Other: + no cervical, submandibular or submental LAD. Neck: Yes normal visual inspection and Yes full ROM Resp Effort & Inspection: normal respiratory effort and able to speak in complete sentences Auscultation: clear to auscultation bilaterally Cardio Rate: regular rate Rhythm: regular rhythm GI Inspection: Yes normal to inspection Palpation (GI): Soft to palpation and nontender Skin General skin exam: no rashes or lesions noted Neuro General: patient oriented x3, gait normal and moves all extremities Cranial nerves: Yes Equal, round and reactive pupils present Extrem General: Yes normal to inspection Course Course Course Narrative: This is a rapid medical exam: Additional HPI, ROS, PE not included below will be deferred to primary provider. Patient is a 28-year-old female presenting to the ED with complaint of body aches and fever as well as headache since yesterday. Tmax of 102. Plan: viral and strep swabs Reevaluation(s) Reevaluation #1: 3691-- Patient tested positive for the flu. After discussion of treatment, one dose of Tamiflu will be given in ED and script will be sent to her pharmacy. Educated on symptomatic treatment. Patient has remained stable throughout ED visit today. Discussed worrisome signs and symptoms and when to return to the ED. All questions answered at this time. Patient is agreeable with disposition and stable for discharge. Medications Administered Discontinued Medications Generic Name Dose Route Start Last Admin Trade Name Freq PRN Reason Stop Dose Admin Oseltamivir Phosphate 75 mg 11/27/23 17:39 11/27/23 18:03 Oseltamivir Phosphate 75 Mg Capsule PO 11/27/23 17:40 75 mg ONCE ONE Administration Medical Decision Making Medical Decision Making MDM Narrative: 20-year-old female with no significant past medical history presents to the ED today from home for evaluation of subjective fevers, headache, nonproductive cough beginning yesterday. Patient is slightly hypertensive, vitals otherwise WNL. she is afebrile and satting 98% on room air. She is nontoxic appearing in no acute distress. Bilateral EACs and TMs WNL. Posterior oropharynx slightly erythematous however no edema. No tonsillar exudates or peritonsillar masses. Uvula midline. She is controlling secretions and speaking in complete sentences. No cervical lymphadenopathy. Abdomen soft, nontender. No splenomegaly. Differential diagnosis includes viral syndrome, strep throat. Unlikely mono, pneumonia, [employer] ME[employer]IC, retropharyngeal abscess, epiglottitis, respiratory distress. Plan for viral serology and re-evaluation. Differential Diagnosis Differential Diagnoses: The differential diagnosis associated with the presentation includes as above. Admission/Observation Not indicated Lab Data [facility] Lab Attestation statement: I reviewed the patient's lab results. as above Labs: Lab Results 11/27/23 Range/Units 16:15 Influenza Type A (PCR) POSITIVE A (Negative) Influenza Type B (PCR) NEGATIVE (Negative) RSV RNA Qual (PCR) NEGATIVE (Negative) SARS-CoV-2 RNA (RT-PCR) NEGATIVE (Negative) S. pyogenes GrpA ALBA Negative (Negative) External Record Review External record reviewed: Inpatient record Prescription Management I considered prescription management with: Pain Medication and Antiviral (Tamiflu) Social Determinants Patient?s care significantly limited by Social Determinants of Health including: Other Social Determinant of Health Critical Care Time Critical Care Time Critical Care Time: No Discharge Plan Discharge Clinical Impression: Influenza A (H1N1) Patient Disposition: Home, Self-Care Instructions: Influenza (ED), Flu Shot (Vaccine) for Adults (ED), Droplet Precautions (ED) Additional Instructions: You tested positive for influenza A. You received a dose of Tamiflu in ED. this has been sent to your pharmacy as well. Take this for the next 5 days. Limit contact with others as you are contagious. Alter ibuprofen and Tylenol for fevers and body aches. Chloraseptic spray as and sent to your pharmacy to spray the back of your throat for throat pain. Follow-up with your PCP. If symptoms persist or worsen please return to the emergency department. The case of an emergency call 911. Prescriptions: New Chloraseptic Max Sore Throat 1.5-33 % spray,non-aerosol 1 spray mucous membrane Q6-8H PRN (Reason: sore throat) Qty: 118 0RF Rx Instructions: leave on area for 15 seconds then spit out oseltamivir [Tamiflu] 75 mg capsule 75 mg PO BID 5 Days Qty: 10 0RF No Action cyclobenzaprine 10 mg tablet 10 mg PO TID PRN (Reason: muscle spasm) Qty: 14 0RF lidocaine 4 % adhesive patch,medicated 1 patch topical DAILY PRN (Reason: pain) Qty: 10 0RF Rx Instructions: may leave on for up to 12 hrs ibuprofen 600 mg tablet 600 mg PO Q6H PRN (Reason: fever or pain) Qty: 30 0RF Stand Alone Forms: Work/School Release Interventions: ED Discharge Assessment Last Done: 11/27/23 18:11 Discharge Date/Time: 11/27/23 18:14
[2023-11-27 16:28] LABS: IDNOW Serial# 58CA691E; Strep A Nucleic Acid Negative (Negative)
[2023-11-27 17:24] LABS: Influenza A PCR POSITIVE (Negative); Influenza B PCR NEGATIVE (Negative); Resp Syncy Virus RNA Qual PCR NEGATIVE (Negative); SARS COV2 PCR INHOUSE NEGATIVE (Negative)
[2023-11-27] MEDS: Oseltamivir Phosphate 75 MG CAPSULE PO (18:03)
[2023-11-27 18:11] VITALS: BP 119/67; PULSE 76; RESP 18; TEMP 36.9; O2SAT 98
== END 2023-11-27 18:14 | disposition home or self-care (01) ==
PROVIDERS: Registered Nurse Emergency; Emergency Provider Student in an Organized Health Care Education/Training Program
DX: J10.1 Influenza due to other identified influenza virus with other respiratory manifestations (principal); Z11.52 Encounter for screening for COVID-19; Z20.828 Contact with and (suspected) exposure to other viral communicable diseases
CPT/HCPCS: 0241U; 87651; 99282; 99283

== ENCOUNTER 2024-08-11 17:37 | Emergency (ER) | payer OTHER, SELFPAY ==
[2024-08-11 17:39] VITALS: BP 145/99; PULSE 118; RESP 20; TEMP 37.2; O2SAT 99; BMI 32.5
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
[2024-08-11 19:30] VITALS: BP 105/66; PULSE 75; RESP 16; TEMP 36.4; O2SAT 95
[2024-08-11] MEDS: Acetaminophen 325 MG TABLET 975 MG PO (19:32)
[2024-08-11] MEDS: Bacitracin Oint 0.9 GM PACKET 1 APPL TOPICAL (19:32)
[2024-08-11] MEDS: Ibuprofen 400 MG TABLET PO (19:32)
[2024-08-11] MEDS: Diphth,Pertus(ACell),Tet Adult 0.5 ML SYRINGE IM (19:32)
[2024-08-11 19:45] VITALS: BP 105/66; PULSE 75; RESP 16; TEMP 36.4; O2SAT 95
== END 2024-08-11 19:46 | disposition home or self-care (01) ==
PROVIDERS: Emergency Provider Emergency Medicine Emergency Medical Services; PCP Physician Assistant Medical
DX: T22.111A Burn of first degree of right forearm, initial encounter (principal); T23.171A Burn of first degree of right wrist, initial encounter; X10.2XXA Contact with fats and cooking oils, initial encounter; Y93.G3 Activity, cooking and baking; Y92.009 Unspecified place in unspecified non-institutional (private) residence as the place of occurrence of the external cause; Y99.9 Unspecified external cause status
CPT/HCPCS: 90471; 90715; 99283; 99284

== ENCOUNTER 2024-08-26 19:28 | Emergency (ER) | payer OTHER, SELFPAY ==
--- NOTE | ~2024-08-26 | XR_ITS ---
EXAMINATION: XR CHEST CLINICAL INFORMATION: sob, cough COMPARISON: None available. TECHNIQUE: 2 views of the chest were obtained. FINDINGS: No significant abnormality is noted involving the heart, lungs, mediastinum, bony thorax or soft tissues. XR/XR chest 2V IMPRESSION: Unremarkable examination. Electronically signed by: Chet Sosa MD 08/26/2024 08:15 PM [facility] [place]
[2024-08-26 19:37] VITALS: BP 132/96; PULSE 100; RESP 20; TEMP 36.9; O2SAT 98; BMI 31.9
--- NOTE | 2024-08-26 19:37 | ED.GENADULT ---
HPI - General Adult General Chief complaint: Upper Respiratory Symptoms Stated complaint: strep throat not getting better Time Seen by Provider: 08/26/24 21:32 Source: patient Mode of arrival: ambulatory Limitations: no limitations History of Present Illness ED Provider: Dr. Claudia Mena HPI narrative: Patient comes to the emergency room complaining of increase asthma exacerbations, sore throat. Patient states that 3 days ago she was diagnosed with strep, started on penicillin. Patient states that she is not getting better, patient states that she feels that her asthma exacerbation are becoming more frequent and her throat is hurting more. Denies fever chills. At this time patient denies any wheezing or shortness of breath. Related Data Previous Rx's ?Medication ?Instructions ?Recorded cyclobenzaprine 10 mg tablet 10 mg PO TID PRN muscle spasm #14 04/19/23 tabs lidocaine 4 % topical patch 1 patch topical DAILY PRN pain #10 04/19/23 ea ibuprofen 600 mg tablet 600 mg PO Q6H PRN fever or pain 06/16/23 #30 tabs oseltamivir 75 mg capsule (Tamiflu) 75 mg PO BID 5 days #10 caps 11/27/23 phenol 1.5 %-glycerin 33 % mucosal 1 spray mucous membrane Q6-8H PRN 11/27/23 spray (Chloraseptic Max Sore sore throat #118 mL Throat) acetaminophen 500 mg tablet 1,000 mg (2 x 500 mg) PO Q6H PRN 08/11/24 (Tylenol Extra Strength) fever or pain #20 tabs bacitracin 500 unit/gram topical 1 appl topical BID 7 days #28 grams 08/11/24 ointment ibuprofen 400 mg tablet 400 mg PO TID PRN fever or pain 08/11/24 #30 tabs amoxicillin 500 mg-potassium 1 tab PO TID 7 days #21 tabs 08/26/24 clavulanate 125 mg tablet (Augmentin) ondansetron HCl 4 mg tablet 4 mg PO Q8H PRN nausea and 08/26/24 vomiting #14 tabs prednisone 50 mg tablet 50 mg PO DAILY #5 tabs 08/26/24 Allergies Allergy/AdvReac Type Severity Reaction Status Date / Time No Known Allergies Allergy Verified 08/26/24 19:43 [No Known Allergies*] Review of Systems Review of Systems: Constitutional : No Weight loss, No Fever, No Chills, No Night Sweats, No Fatigue, No Malaise ENT/Mouth : No Hearing loss, No Ear Pain, No Nasal Congestion, No Sinus Pain, No Hoarseness, complaining sore throat, No Rhinorrhea, No Swallowing Difficulty Eyes: No Eye Pain, No Swelling, No Redness, No Foreign Body, No Discharge, No Vision Changes Cardiovascular : No Chest Pain, No SOB, No Dyspnea on Exertion, No Orthopnea, No Edema, No Palpitations Respiratory : No Cough, No Sputum, complaining of worsening and more frequent Wheezing/asthma exacerbations, No Smoke Exposure, No Dyspnea Gastrointestinal : No Nausea, No Vomiting, No Diarrhea, No Constipation, No abdominal Pain, No Hematochezia, No Melena Genitourinary : no irregular bleeding, No Dysuria, No Urinary Frequency, No Hematuria, No Urinary Incontinence, No Urgency, No Flank Pain, No Urinary Flow Changes, No Hesitancy Musculoskeletal : No joint pain, No Myalgias, No Joint Swelling Skin : No Skin Lesions, No rash Neuro : No Weakness, No Numbness, No Paresthesias, No Loss of Consciousness, No Dizziness, No Headache Psych : No Anxiety/Panic, No Depression, No SI/HI/AH/VH, No Social Issues, Heme/Lymph: No Bruising, No Bleeding,No Lymphadenopathy Endocrine : No Polyuria, No Polydipsia, No Temperature Intolerance [facility] Past Medical History Medical History No pertinent past medical history Social History Social History Alcohol intake: current Alcohol intake frequency: a few times a week Alcohol type: wine Substance Use Type: Marijuana Advance Directives: No Advance Directives Information Provided: No Physical Exam ED Vital Signs: Vital Signs - 24 hr 08/26/24 19:37 Temperature 98.5 F Pulse Rate 100 Respiratory Rate 20 Blood Pressure 132/96 H Pulse Oximetry 98 Oxygen Delivery Method Room Air BMI result Body Mass Index 31.9 Const Other: Appearance: Alert. Oriented X3. No acute distress. Eyes: Pupils equal, round and reactive to light. ENT: Pharynx mildly erythematous, no vesicles, no abscess visualized, no. Neck: Normal inspection. Neck supple. No lymph nodes noted. No crepitus CVS: Normal heart rate and rhythm. Pulses normal. Normal S1 and S2 Respiratory: No respiratory distress. Breath sounds normal. No Wheezing. No rales Abdomen: Soft and nontender. No rigidity. No distention. Skin: Skin warm and dry. Normal skin color. Normal skin turgor. Extremities: No lower extremity edema. No Lacerations. No Rash Neuro: Oriented X 3. No motor deficit. No sensory deficit. Moving all extremities. No slurred speech. CN 2 through 12 grossly intact Psych: calm, cooperative, normal affect Course Course Course Narrative: This is an RME performed by Roberta Mcginnis, BUSINESS DEVELOPMENT COORDINATOR: Additional HPI, ROS, PE not included below will be deferred to primary provider. Patient is a 28y.o. female recent diagnosed grp A strep positive, prescribed pen vk 500mg BID x1d, started 08/23/24. called PCP as she was feeling no better and had vomiting today w/ low grade fever, cough, SOB, chest tightness, increased use of MDI with minimal improvement, PCP advised to come to ED. Exam: posterior oropharynx erythematous, no assymetry, uvula midlune, no trismus, no stridor, LS clear at the apices, diminished at bases Plan: viral serologies, CXR, ekg. Medical Decision Making Medical Decision Making [facility] Narrative: At this time, patient is not wheezing, completely clear lung sounds and oxygen saturation at 98% on room air. Discussed with the patient that we can switch her antibiotics to Augmentin. Patient seems to have trouble tolerating her medication as keeps her nausea. Patient will be taking Zofran some lingual 20 minutes before her Augmentin dose. Patient states she has enough inhalers, patient will also be started on prednisone since her asthma exacerbations have been worse throughout this last few days. My interpretation of labs: Patient tested negative for RSV COVID and influenza Lab Data [facility] Lab Attestation statement: I reviewed the patient's lab results. Labs: Lab Results 08/26/24 Range/Units 19:52 Influenza Type A (PCR) NEGATIVE (Negative) Influenza Type B (PCR) NEGATIVE (Negative) RSV RNA Qual (PCR) NEGATIVE (Negative) SARS-CoV-2 RNA (RT-PCR) NEGATIVE (Negative) Discharge Plan Discharge Clinical Impression: Pharyngitis, Asthma Patient Disposition: Home, Self-Care Instructions: Asthma (ED), Pharyngitis (ED) Additional Instructions: Please follow-up with your primary care physician tomorrow. If you have any worsening or new symptoms, please return to the emergency room or call 911 Prescriptions: New amoxicillin-pot clavulanate [Augmentin] 500-125 mg tablet 1 tab PO TID 7 Days Qty: 21 0RF prednisone 50 mg tablet 50 mg PO DAILY Qty: 5 0RF ondansetron HCl 4 mg tablet 4 mg PO Q8H PRN (Reason: nausea and vomiting) Qty: 14 0RF No Action cyclobenzaprine 10 mg tablet 10 mg PO TID PRN (Reason: muscle spasm) Qty: 14 0RF lidocaine 4 % adhesive patch,medicated 1 patch topical DAILY PRN (Reason: pain) Qty: 10 0RF Rx Instructions: may leave on for up to 12 hrs ibuprofen 600 mg tablet 600 mg PO Q6H PRN (Reason: fever or pain) Qty: 30 0RF Chloraseptic Max Sore Throat 1.5-33 % spray,non-aerosol 1 spray mucous membrane Q6-8H PRN (Reason: sore throat) Qty: 118 0RF Rx Instructions: leave on area for 15 seconds then spit out oseltamivir [Tamiflu] 75 mg capsule 75 mg PO BID 5 Days Qty: 10 0RF bacitracin 500 unit/gram ointment 1 appl topical BID 7 Days Qty: 28 0RF acetaminophen [Tylenol Extra Strength] 500 mg tablet 1,000 mg PO Q6H PRN (Reason: fever or pain) Qty: 20 0RF ibuprofen 400 mg tablet 400 mg PO TID PRN (Reason: fever or pain) Qty: 30 0RF Stand Alone Forms: Work/School Release Print Language: Prydeinig
--- NOTE | 2024-08-26 19:44 | ECG_ITS ---
Test Reason : CHEST PAIN Blood Pressure : / mmHG Vent. Rate : 085 BPM Atrial Rate : 085 BPM P-R Int : 164 ms QRS Dur : 086 ms QT Int : 340 ms P-R-T Axes : 059 016 -06 degrees QTc Int : 404 ms Artifact in tracing Normal sinus rhythm Possible Left atrial enlargement Possible Anterior infarct , age undetermined Nonspecific ST and T wave abnormality Abnormal ECG No previous ECGs available Referred By: Court Mcginnis Electronically Signed By:LIZZETTE MONROY
[2024-08-26 20:37] LABS: Influenza A PCR NEGATIVE (Negative); Influenza B PCR NEGATIVE (Negative); Resp Syncy Virus RNA Qual PCR NEGATIVE (Negative); SARS COV2 PCR INHOUSE NEGATIVE (Negative)
[2024-08-26 22:12] VITALS: BP 117/80; PULSE 75; RESP 18; TEMP 37.3; O2SAT 96
== END 2024-08-26 22:13 | disposition home or self-care (01) ==
PROVIDERS: Nurse Practitioner Family; Emergency Provider Emergency Medicine; PCP Physician Assistant Medical
DX: J02.9 Acute pharyngitis, unspecified (principal); J45.909 Unspecified asthma, uncomplicated; R07.89 Other chest pain; Z03.818 Encounter for observation for suspected exposure to other biological agents ruled out
CPT/HCPCS: 0241U; 71046; 93005; 99283

== ENCOUNTER → 2024-08-26 19:44 | Outpatient (BNV) | payer OTHER, SELFPAY | PROVIDERS: Emergency Provider Emergency Medicine; PCP Physician Assistant Medical; Visit Provider Internal Medicine | DX: R94.31 Abnormal electrocardiogram [ECG] [EKG] (principal) | CPT/HCPCS: 93010 ==

== ENCOUNTER 2024-08-30 15:56 | Emergency (ER) | payer OTHER, SELFPAY ==
--- NOTE | ~2024-08-30 | XR_ITS ---
EXAMINATION: XR CHEST CLINICAL INFORMATION: chest pain, sob COMPARISON: Prior chest radiograph 08/26/2024 TECHNIQUE: 2 views of the chest were obtained. FINDINGS: Lungs clear. No pleural effusions. Heart and prominent vessels are normal. XR/XR chest 2V IMPRESSION: No active disease. Electronically signed by: Oumar Briceño MD 08/30/2024 05:[address] [facility] [place]
--- NOTE | 2024-08-30 15:59 | ECG_ITS ---
Test Reason : chest pain Blood Pressure : / mmHG Vent. Rate : 102 BPM Atrial Rate : 102 BPM P-R Int : 142 ms QRS Dur : 084 ms QT Int : 328 ms P-R-T Axes : 067 026 016 degrees QTc Int : 427 ms Sinus tachycardia Nonspecific ST and T wave abnormality Abnormal ECG When compared with ECG of 26-AUG-2024 19:51, Nonspecific T wave abnormality has replaced inverted T waves in Anterior leads Referred By: Raegan Rivas Electronically Signed By:LIZZETTE MONROY
[2024-08-30 16:04] VITALS: BP 150/91; PULSE 100; RESP 20; TEMP 37.7; O2SAT 99; BMI 31.6
--- NOTE | 2024-08-30 16:04 | ED_ITS ---
HPI - Chest Pain General Chief Complaint: Chest Pain Stated Complaint: Chest pain, SOB Time Seen by Provider: 08/30/24 16:40 Source: patient and old records reviewed Mode of arrival: ambulatory Limitations: no limitations History of Present Illness ED Provider: JOSHUA BURT narrative: 28 yo female with PMH of asthma, epilepsy but no events or meds for 3 years, who has been sick initially 08/23 strep throat treated with PCN then presented here 08/26 with chest pain, asthma and worsening symptoms she has labs, CXR no acute findings at that time started on augmentin, prednisone and zofran. She returns again today as her anterior chest hurts to take a deep breath. No hx of clots not on OCPs. She notes it hurts to touch and she feels short of breath. He throat does appear to be getting better. complaint: chest pain Onset (ago): day(s) (1) Timing of current episode: episodic Prior episodes: Yes Onset: during rest and during exertion Pain location: substernal Pain radiation: none Severity: moderate Quality: sharp Relieving factors: nothing Exacerbating factors: inspiration and palpation Context: recent illness Associated symptoms: dyspnea Treatment prior to arrival: none Related Data Previous Rx's ?Medication ?Instructions ?Recorded cyclobenzaprine 10 mg tablet 10 mg PO TID PRN muscle spasm #14 04/19/23 tabs lidocaine 4 % topical patch 1 patch topical DAILY PRN pain #10 04/19/23 ea ibuprofen 600 mg tablet 600 mg PO Q6H PRN fever or pain 06/16/23 #30 tabs oseltamivir 75 mg capsule (Tamiflu) 75 mg PO BID 5 days #10 caps 11/27/23 phenol 1.5 %-glycerin 33 % mucosal 1 spray mucous membrane Q6-8H PRN 11/27/23 spray (Chloraseptic Max Sore sore throat #118 mL Throat) acetaminophen 500 mg tablet 1,000 mg (2 x 500 mg) PO Q6H PRN 08/11/24 (Tylenol Extra Strength) fever or pain #20 tabs bacitracin 500 unit/gram topical 1 appl topical BID 7 days #28 grams 08/11/24 ointment ibuprofen 400 mg tablet 400 mg PO TID PRN fever or pain 08/11/24 #30 tabs amoxicillin 500 mg-potassium 1 tab PO TID 7 days #21 tabs 08/26/24 clavulanate 125 mg tablet (Augmentin) ondansetron HCl 4 mg tablet 4 mg PO Q8H PRN nausea and 08/26/24 vomiting #14 tabs prednisone 50 mg tablet 50 mg PO DAILY #5 tabs 08/26/24 cyclobenzaprine 10 mg tablet 10 mg PO TID PRN muscle spasm #20 08/30/24 tabs lidocaine 5 % topical patch 1 patch topical DAILY #30 ea 08/30/24 Allergies Allergy/AdvReac Type Severity Reaction Status Date / Time No Known Allergies Allergy Verified 08/30/24 16:05 [No Known Allergies*] Review of Systems 2 Review of Systems: Constitutional : No Weight loss, No Fever, No Chills ENT/Mouth : No sore throat, No Rhinorrhea Eyes: No Eye Pain, No Swelling Cardiovascular : pos Chest Pain, pos SOB, pos Dyspnea on Exertion, No Orthopnea, No Edema, No Palpitations Respiratory : No Cough, No Sputum Gastrointestinal : no Nausea, No Vomiting, No Diarrhea, No abdominal Pain, No Hematochezia, No Melena Genitourinary : No Dysuria, No Urinary Frequency Musculoskeletal : No joint pain, No Myalgias, No Joint Swelling Skin : No Skin Lesions, No rash Neuro : No Weakness, No Numbness, No Dizziness, No Headache All other systems reviewed and are negative [facility]LY [facility], [facility] Past Medical History Attestation statement: The following information was validated with the patient. Source: old records reviewed Medical History Asthma Epilepsy Social History Social History (Updated 08/30/24 @ 16:55 by Ana Rosa Cancino DO) Alcohol intake: current Alcohol intake frequency: a few times a week Alcohol type: wine Patient Tobacco Use Status: Never used Tobacco Substance Use Type: Marijuana Advance Directives: No Advance Directives Information Provided: No Do you have a plan to hurt others: No Plan Physical Exam 2 Vital Signs: Vital Signs: Last Vital Signs Temp 98.7 F 08/30/24 17:54 Pulse 63 08/30/24 17:54 Resp 18 08/30/24 17:54 BP 115/63 08/30/24 17:54 Pulse Ox 97 08/30/24 17:54 O2 Del Method Room Air 08/30/24 17:54 BMI result Body Mass Index 31.6 Appearance: Alert. Oriented X3. No acute distress. Eyes: Pupils equal, round and reactive to light. ENT: Pharynx normal. Neck: Normal inspection. Neck supple. no mass felt no fullness CVS: Normal heart rate and rhythm. Pulses normal. Chest wall: ttp along costochrondral border reproduces pain no mass felt no fluctuance Respiratory: No respiratory distress. Breath sounds normal. Abdomen: Soft and nontender. Skin: Skin warm and dry. Normal skin color. Normal skin turgor. Extremities: No lower extremity edema. No calf ttp Neuro: Oriented X 3. No motor deficit. No sensory deficit. Course Course Course Narrative: This is a Rapid Medical Examination (RME) performed by Michelle Rivas PA-C in triage. Full HPI, ROS, assessment and treatment plan per primary provider in the Main ED. 28 yo female with history of asthma presents to the ER for evaluation of diffuse chest pain and tightness and shortness of breath that started today. no fever. was sick last week but felt better and hasnt had a cough in the last few days. no improvement with her inhaler at home. not on OCP. lungs are clear throughout. tachycardic in triage with increased RR. Plan: labs, CXR, EKG Reevaluation(s) Reevaluation #1: HR 60s, no fever, 97% on RA, looks not toxic, stable for DC Medications Administered Discontinued Medications Generic Name Dose Route Start Last Admin Trade Name Freq PRN Reason Stop Dose Admin Ketorolac Tromethamine 30 mg 08/30/24 17:32 08/30/24 17:39 Ketorolac Tromethamine 30 Mg/Ml Vial IM 08/30/24 17:33 30 mg ONCE ONE Administration Medical Decision Making Medical Decision Making [facility] Narrative: 28 yo female with PMH of asthma and epilepsy not on AEDs here with recent strep then URI she returns again today with c/o not feeling well has chest wall pain and pain with inspiration. Her pain is not worse with leaning forward she has no risk factors for ACS, on exam neck and chest wall are normal no mass. She denies OCP use at this time labs, EKG, CXR, troponin x 1, ddimer. Differential Diagnosis Differential Diagnoses: The differential diagnosis associated with the presentation includes chest wall pain, VTE, costochondritis, URI Admission/Observation Consideration of admission/observation: Escalation of care including admission/observation considered negative trop, unchanged EKG, ddimer negative swabs negative CXR negative will start on NSAIDs and MRs wbc count from prednisone Lab Data [facility] Lab Attestation statement: I reviewed the patient's lab results. 08/30/24 16:23 08/30/24 16:23 Labs: Lab Results 08/30/24 Range/Units 16:23 WBC 14.7 H (4.8-10.8) X10*3/uL RBC 4.97 (4.20-5.50) X10*6/uL Hgb 14.2 (12.0-16.0) g/dl Hct 40.8 (37.0-47.0) % MCV 82.1 (80.0-98.0) fL MCH 28.6 (27.0-33.0) pg MCHC 34.8 (31.0-35.0) g/dl RDW 12.4 (11.0-16.0) % Plt Count 282 D (160-400) X10*3/uL MPV 11.6 (9.4-12.3) fL Immature Gran % (Auto) 0.5 H (0.0-0.4) % Neut % (Auto) 90.4 H (45-73) % Lymph % (Auto) 6.1 L (20-40) % [place] % (Auto) 2.8 (2-11) % Eos % (Auto) 0.0 (0-4) % Baso % (Auto) 0.2 (0-2) % Lymph # (Auto) 0.9 L (1.2-4.9) X10*3/uL [place] # (Auto) 0.4 (0.1-1.2) X10*3/uL Eos # (Auto) 0.0 (0.0-0.4) X10*3/uL Baso # (Auto) 0.0 (0.0-0.2) X10*3/uL Abs Immat Gran (auto) 0.08 H (0.00-0.03) X10*3/uL Absolute Neuts (auto) 13.3 H (2.0-8.3) x10*3/uL Absolute Nucleated RBC 0.000 (0.0-0.012) X10*3/uL Nucleated RBC % (auto) 0.0 (0.0-0.2) /100WBC PT 11.7 (10.9-12.4) SEC INR 1.0 (0.9-1.1) APTT 29.0 (26.0-36.8) SEC D-Dimer High Sensitivty < 150 NG/ML Sodium 138 (135-145) mmol/L Potassium 3.8 (3.3-5.1) mmol/L Chloride 109 H (96-108) mmol/L Carbon Dioxide 20 L (22-29) mmol/L Anion Gap 13 (12-20) BUN 13 (9-16) mg/dL Creatinine 0.78 (0.5-1.4) mg/dL Estim Creat Clear Calc 108.0 Estimated GFR > 60 Random Glucose 159 H (60-115) mg/dL Calcium 9.4 (8.4-10.2) mg/dL Magnesium 1.7 (1.6-2.6) mg/dL Total Bilirubin 0.5 (0.0-1.0) mg/dL Direct Bilirubin 0.2 (0.0-0.5) mg/dL AST 16 (5-31) U/L ALT 16 (0-31) U/L Alkaline Phosphatase 73 (39-117) U/L Troponin I High Sens < 2.7 (<3.5-17.0) ng/L Total Protein 7.4 (6.5-8.0) g/dL Albumin 4.4 (3.5-5.0) g/dL Influenza Type A (PCR) NEGATIVE (Negative) Influenza Type B (PCR) NEGATIVE (Negative) RSV RNA Qual (PCR) NEGATIVE (Negative) SARS-CoV-2 RNA (RT-PCR) NEGATIVE (Negative) Independent Interpretation I performed an independent interpretation of an: EKG and Plain X-Ray (negative) Interpretation: Rate: 102 Rhythm: sinus tach [place]ila: normal Normal P waves. Normal KVNG. Normal QRS complex. ST T wave : nonspecific ST T wave changes V3-V6, no NAZANIN qTC: 427 prior studies: no sig change from prior The study has been interpreted contemporaneously by me. . Radiology Impression Discussion of test interpretation with radiology: I have reviewed the radiologist's reading. External Record Review External record reviewed: Office record Prescription Management I considered prescription management with: Pain Medication and Other Discharge Plan Discharge Clinical Impression: Acute costochondritis Patient Disposition: Home, Self-Care Instructions: Costochondritis (ED) Additional Instructions: chest xray normal labs reassuring trop flat blood test for clot was negative at this time use motrin regularly and muscle relaxer - continue steroids and your antibiotic return for any worsening symptoms or concerns. rest and stay hydrated Prescriptions: New cyclobenzaprine 10 mg tablet 10 mg PO TID PRN (Reason: muscle spasm) Qty: 20 0RF lidocaine 5 % adhesive patch,medicated 1 patch topical DAILY Qty: 30 0RF Rx Instructions: leave on most painful area for up to 12 hrs No Action cyclobenzaprine 10 mg tablet 10 mg PO TID PRN (Reason: muscle spasm) Qty: 14 0RF lidocaine 4 % adhesive patch,medicated 1 patch topical DAILY PRN (Reason: pain) Qty: 10 0RF Rx Instructions: may leave on for up to 12 hrs ibuprofen 600 mg tablet 600 mg PO Q6H PRN (Reason: fever or pain) Qty: 30 0RF amoxicillin-pot clavulanate [Augmentin] 500-125 mg tablet 1 tab PO TID 7 Days Qty: 21 0RF prednisone 50 mg tablet 50 mg PO DAILY Qty: 5 0RF ondansetron HCl 4 mg tablet 4 mg PO Q8H PRN (Reason: nausea and vomiting) Qty: 14 0RF Chloraseptic Max Sore Throat 1.5-33 % spray,non-aerosol 1 spray mucous membrane Q6-8H PRN (Reason: sore throat) Qty: 118 0RF Rx Instructions: leave on area for 15 seconds then spit out oseltamivir [Tamiflu] 75 mg capsule 75 mg PO BID 5 Days Qty: 10 0RF bacitracin 500 unit/gram ointment 1 appl topical BID 7 Days Qty: 28 0RF acetaminophen [Tylenol Extra Strength] 500 mg tablet 1,000 mg PO Q6H PRN (Reason: fever or pain) Qty: 20 0RF ibuprofen 400 mg tablet 400 mg PO TID PRN (Reason: fever or pain) Qty: 30 0RF Stand Alone Forms: Work/School Release Print Language: Irish
[2024-08-30 16:28] LABS: MANUAL DIFF FLAG NO
[2024-08-30 16:36] LABS: Prothrombin Time 11.7 SEC (10.9-12.4)
[2024-08-30 16:40] LABS: Basophils Percent Auto 0.2 % (0-2); Hematocrit 40.8 % (37.0-47.0); Hemoglobin 14.2 g/dl (12.0-16.0); Imm Gran Abs Auto 0.08 X10*3/uL (0.00-0.03); Imm Gran Pct Auto 0.5 % (0.0-0.4); Lymphocytes Absolute Auto 0.9 X10*3/uL (1.2-4.9); Lymphocytes Percent Auto 6.1 % (20-40); Mean Corpuscular HGB Conc 34.8 g/dl (31.0-35.0); Mean Corpuscular Hemoglobin 28.6 pg (27.0-33.0); Mean Corpuscular Volume 82.1 fL (80.0-98.0); Mean Platelet Volume 11.6 fL (9.4-12.3); Monocytes Absolute Auto 0.4 X10*3/uL (0.1-1.2); Monocytes Percent Auto 2.8 % (2-11); Neutrophils Absolute Auto 13.3 x10*3/uL (2.0-8.3); Neutrophils Percent Auto 90.4 % (45-73); Platelet Count 282 X10*3/uL (160-400); Red Blood Count 4.97 X10*6/uL (4.20-5.50); Red Cell Distribution Width 12.4 % (11.0-16.0); SCAN SMEAR FLAG 1; White Blood Count 14.7 X10*3/uL (4.8-10.8)
[2024-08-30 16:44] LABS: Alanine Aminotransferase 16 U/L (0-31); Albumin Level 4.4 g/dL (3.5-5.0); Alkaline Phosphatase 73 U/L (39-117); Anion Gap 13 (12-20); Aspartate Amino Transferase 16 U/L (5-31); Bilirubin Direct 0.2 mg/dL (0.0-0.5); Bilirubin Total 0.5 mg/dL (0.0-1.0); Blood Urea Nitrogen 13 mg/dL (9-16); Calcium 9.4 mg/dL (8.4-10.2); Carbon Dioxide 20 mmol/L (22-29); Chloride 109 mmol/L (96-108); Estimated Glomerular Filt Rate > 60; Glucose Random 159 mg/dL (60-115); Magnesium 1.7 mg/dL (1.6-2.6); Potassium 3.8 mmol/L (3.3-5.1); Sodium 138 mmol/L (135-145); Total Protein 7.4 g/dL (6.5-8.0)
[2024-08-30 16:56] LABS: Troponin-I High Sensitivity < 2.7 ng/L (<3.5-17.0)
[2024-08-30 17:06] LABS: Influenza A PCR NEGATIVE (Negative); Influenza B PCR NEGATIVE (Negative); Resp Syncy Virus RNA Qual PCR NEGATIVE (Negative); SARS COV2 PCR INHOUSE NEGATIVE (Negative)
[2024-08-30 17:25] LABS: D Dimer High Sensitivity < 150 NG/ML
[2024-08-30] MEDS: Ketorolac Tromethamine 30 MG/ML VIAL IM (17:39)
[2024-08-30 17:54] VITALS: BP 115/63; PULSE 63; RESP 18; TEMP 37.1; O2SAT 97
[2024-08-30 18:18] VITALS: BP 115/63; PULSE 63; RESP 18; TEMP 37.1; O2SAT 97
== END 2024-08-30 18:21 | disposition home or self-care (01) ==
PROVIDERS: Physician Assistant; Emergency Provider Emergency Medicine; PCP Physician Assistant Medical
DX: M94.0 Chondrocostal junction syndrome [Tietze] (principal); R06.02 Shortness of breath; Z03.818 Encounter for observation for suspected exposure to other biological agents ruled out; J45.909 Unspecified asthma, uncomplicated; Z79.899 Other long term (current) drug therapy
CPT/HCPCS: 0241U; 36415; 71046; 80048; 80076; 83735; 84484; 85025; 85379; 85610; 85730; 93005; 96372; 99284; J1885

== ENCOUNTER → 2024-08-30 15:59 | Outpatient (BNV) | payer OTHER, SELFPAY | PROVIDERS: Emergency Provider Emergency Medicine; PCP Physician Assistant Medical; Visit Provider Internal Medicine | DX: R94.31 Abnormal electrocardiogram [ECG] [EKG] (principal); R07.9 Chest pain, unspecified | CPT/HCPCS: 93010 ==

== ENCOUNTER 2024-09-08 18:11 | Emergency (ER) | payer OTHER, SELFPAY ==
[2024-09-08 18:20] VITALS: BP 136/76; PULSE 96; RESP 18; TEMP 37.2; O2SAT 99; BMI 32.8
--- NOTE | 2024-09-08 18:40 | ED.GENADULT ---
HPI - General Adult General Chief complaint: General Medical Stated complaint: left foot broken/painful Time Seen by Provider: 09/08/24 18:40 Source: patient Mode of arrival: wheelchair Limitations: no limitations History of Present Illness ED Provider: Dary Clark PA-C HPI narrative: Patient is a 28 year old assigned female at with a history of a fractured left 5th metatarsal presenting to the emergency department today requesting a new splint. Patient states that she was seen at a [facility] affiliated urgent care on 09/06/2024 after slipping and injuring her left foot. Patient states that she has a left 5th metatarsal fracture and the splint they put on is too tight. Patient states that she has not heard from [facility] orthopedics yet. Patient states that she was given crutches which she has with her. Patient denies any dizziness, lightheadedness, abdominal pain, nausea, vomiting, fever, chills, blurry vision, double vision, loss of vision, chest pain, difficulty breathing, shortness of breath, back pain, night sweats, pain with urination, increased urinary frequency, increased urinary urgency, blood in her urine or stool, syncope or a near syncopal episode, bowel incontinence, bladder incontinence, or any other complaints at this time. Relieving factors: none Exacerbating factors: none Associated symptoms: denies other symptoms Related Data Previous Rx's ?Medication ?Instructions ?Recorded cyclobenzaprine 10 mg tablet 10 mg PO TID PRN muscle spasm #14 04/19/23 tabs lidocaine 4 % topical patch 1 patch topical DAILY PRN pain #10 04/19/23 ea ibuprofen 600 mg tablet 600 mg PO Q6H PRN fever or pain 06/16/23 #30 tabs oseltamivir 75 mg capsule (Tamiflu) 75 mg PO BID 5 days #10 caps 11/27/23 phenol 1.5 %-glycerin 33 % mucosal 1 spray mucous membrane Q6-8H PRN 11/27/23 spray (Chloraseptic Max Sore sore throat #118 mL Throat) acetaminophen 500 mg tablet 1,000 mg (2 x 500 mg) PO Q6H PRN 08/11/24 (Tylenol Extra Strength) fever or pain #20 tabs bacitracin 500 unit/gram topical 1 appl topical BID 7 days #28 grams 08/11/24 ointment ibuprofen 400 mg tablet 400 mg PO TID PRN fever or pain 08/11/24 #30 tabs amoxicillin 500 mg-potassium 1 tab PO TID 7 days #21 tabs 08/26/24 clavulanate 125 mg tablet (Augmentin) ondansetron HCl 4 mg tablet 4 mg PO Q8H PRN nausea and 08/26/24 vomiting #14 tabs prednisone 50 mg tablet 50 mg PO DAILY #5 tabs 08/26/24 cyclobenzaprine 10 mg tablet 10 mg PO TID PRN muscle spasm #20 08/30/24 tabs lidocaine 5 % topical patch 1 patch topical DAILY #30 ea 08/30/24 oxycodone 5 mg tablet 5 mg PO Q8H PRN pain #3 tabs 09/08/24 Allergies Allergy/AdvReac Type Severity Reaction Status Date / Time No Known Allergies Allergy Verified 09/08/24 18:23 [No Known Allergies*] Review of Systems Constitutional: Constitutional: Reports no additional constitutional complaints, Denies chills, Denies fever(s) and Denies night sweats Eyes: Eyes: Reports no additional eye complaints, Denies blurry vision, Denies change in vision, Denies diplopia, Denies eye discharge, Denies loss of vision and Denies eye pain ENT: Denies dizziness Cardiovascular: Cardiovascular: Reports no additional cardiovascular complaints, Denies chest pain, Denies lightheadedness, Denies Loss of Consciousness and Denies dyspnea Respiratory: Respiratory: Reports no additional respiratory complaints and Denies dyspnea Gastrointestinal: Gastrointestinal: Reports no additional gastrointestinal complaints, Denies abdominal pain, Denies melena, Denies hematochezia, Denies change in bowel habits and Denies change in stool character Genitourinary: Genitourinary: Denies hematuria, Denies urinary frequency, Denies dysuria, Denies urinary incontinence, Denies urinary hesitancy and Denies urinary urgency Musculoskeletal: Musculoskeletal: Reports no additional musculoskeletal complaints, Denies numbness and Denies tingling Comments: left foot pain / splint concerns Neurologic: Denies dizziness, Denies loss of vision, Denies numbness and Denies tingling Psychiatric: Psychiatric: Reports no additional psychiatric complaints Endocrine: Endocrine: Reports no additional endocrine complaints Hematologic/Lymphatic: Hematologic/Lymphatic: Reports no additional hematologic/lymphatic complaints Allergic/Immunologic: Allergic/Immunologic: Reports no additional allergic/immunologic complaints PMFSH Past Medical History Attestation statement: The following information was validated with the patient. Source: old records reviewed, nursing notes reviewed and other ([facility] records) Medical History Asthma Epilepsy Social History Social History Alcohol intake: current Alcohol intake frequency: a few times a week Alcohol type: wine Patient Tobacco Use Status: Never used Tobacco Substance Use Type: Marijuana Advance Directives: No Advance Directives Information Provided: Yes Do you have a plan to hurt others: No Plan Physical Exam ED Vital Signs: Vital Signs - 24 hr 09/08/24 18:20 09/08/24 19:18 Temperature 98.9 F 98.9 F Pulse Rate 96 96 Respiratory Rate 18 18 Blood Pressure 136/76 136/76 Pulse Oximetry 99 99 Oxygen Delivery Method Room Air Room Air BMI result Body Mass Index 32.8 Const General: cooperative, no acute distress, alert and awake Nutritional Appearance: well nourished Orientation/consciousness: patient oriented x3 Limitations: no limitations HENMT Head: Yes normal to inspection and Yes atraumatic Ears: hearing grossly normal bilaterally and external ears normal General nose exam: Normal external nose present, no nasal discharge noted and no epistaxis Face and sinus: Yes normal facial exam, No abrasion and No laceration Mouth: Normal oral and palatal mucosa present, no drooling and no muffled voice Eyes General: appearance normal, both eyes and all related structures Periorbital: periorbital findings normal Eyelids: Yes eyelids normal Conjunctivae: conjunctivae normal Pupils: Equal, round and reactive pupils present EOM: EOMs intact bilaterally Neck Neck: Yes normal visual inspection, Yes full ROM and Yes no lymphadenopathy Chest Chest palpation & inspection: normal inspection of the chest Resp Effort & Inspection: normal respiratory effort and able to speak in complete sentences GI Inspection: Yes normal to inspection Neuro General: patient oriented x3 and moves all extremities Cranial nerves: Yes Equal, round and reactive pupils present Cognition (Neuro): normal cognition Extrem Other: patient's left foot is in a posterior short leg splint, toes appropriately colored, good PMS in left foot and toes General: Yes full ROM and Yes capillary refill normal Psych Appearance: grossly normal Mental Status: mental status grossly normal Affect: normal affect Attitude: cooperative Thought process: Normal thought process present Thought content: Normal thought content present Insight: Good insight present (Psych) Medications Administered Discontinued Medications Generic Name Dose Route Start Last Admin Trade Name Julianne PRN Reason Stop Dose Admin Ketorolac Tromethamine 15 mg 09/08/24 18:48 09/08/24 18:56 Ketorolac Tromethamine 15 Mg/Ml Vial IM 09/08/24 18:49 15 mg ONCE ONE Administration Naloxone HCl 8 mg 09/08/24 19:08 09/08/24 19:14 Naloxone Hcl Nasal Take Home 4 Mg Husser NOSTRILALT 09/08/24 19:09 8 mg ONCE ONE Administration Oxycodone HCl 5 mg 09/08/24 18:48 09/08/24 18:56 Oxycodone Hcl Immed Release 5 Mg Tablet PO 09/08/24 18:49 5 mg ONCE ONE Administration Procedures Orthopedic Splinting/Casting Injury #1: Side: left Lower Extremity Injury Location: foot Lower Extremity Immobilizer: posterior splint Medical Decision Making Medical Decision Making MDM Narrative: Patient is a 28 year old assigned female at with a history of a fractured left 5th metatarsal presenting to the emergency department today requesting a new splint. Patient's physical exam was as noted in the physical exam portion of this note. I reviewed the patient's [facility] records including her imaging and confirmed a left 5th metatarsal shaft fracture with displacement. I explained my physical exam findings to the patient. I answered all questions asked by the patient. I removed the patient's left posterior short leg splint, without incident. I then applied a new left posterior short leg splint, without incident. Patient's PMS in the left lower extremity was present and intact prior to and after splint removal and splint re-application. Patient was given a dose of Oxycodone while in the department and prescribed 3 tabs for home after being given take home Narcan. Patient expressed some concern with following up at [facility], so I provided her our orthopedic group's information. I stressed the importance of the patient taking her medication as directed (either prescribed or as the over the counter packaging recommends). I stressed the importance of the patient following up with her primary care provider and an orthopedic provider. I stressed the importance of the patient returning to the emergency department immediately if her symptoms were to worsen or if she were to develop any dizziness, shortness of breath, difficulty breathing, chest pain, blurry vision, loss of vision, nausea, vomiting, abdominal pain, fever, chills, back pain, or any other complaints. Patient verbalized agreement and understanding with this treatment plan and discharge. Differential Diagnosis Differential Diagnoses: The differential diagnosis associated with the presentation includes Poorly placed splint Splint replacement Left metatarsal shaft fracture Admission/Observation Consideration of admission/observation: Escalation of care including admission/observation considered Patient would have been admitted to the hospital had her clinical presentation warranted hospital admission. Independent Historian Clinical information obtained from an independent historian. History obtained from or confirmed by: Other (confirmed the history provided by the patient by reviewing [facility] records.) External Record Review External record reviewed: Other (Reviewed the records from [facility] affiliated urgent care.) Prescription Management I considered prescription management with: Pain Medication (patient prescribed pain medication.) Discharge Plan Discharge Clinical Impression: Fracture of 5th metatarsal Patient Disposition: Home, Self-Care Instructions: Foot Fracture in Adults (ED) Additional Instructions: Follow up with your primary care provider and an orthopedic provider. Return to the emergency department immediately if your symptoms worsen or if you develop any dizziness, shortness of breath, difficulty breathing, chest pain, blurry vision, loss of vision, nausea, vomiting, abdominal pain, fever, chills, back pain, or any other complaints. Do NOT bear weight on your left lower extremity. Do NOT remove your splint. Do NOT get the splint wet. If you feel the splint is too tight or your left toes begin to change color, sensation, or movement - you may loosen the VENICE wraps. If you find yourself loosening the VENICE wrap to the point of seeing the white portion of the splint underneath - STOP and return to the ED for a new splint. Prescriptions: New oxycodone 5 mg tablet 5 mg PO Q8H PRN (Reason: pain) Qty: 3 0RF Rx Instructions: Partial Fill upon patient request. No Action cyclobenzaprine 10 mg tablet 10 mg PO TID PRN (Reason: muscle spasm) Qty: 14 0RF lidocaine 4 % adhesive patch,medicated 1 patch topical DAILY PRN (Reason: pain) Qty: 10 0RF Rx Instructions: may leave on for up to 12 hrs ibuprofen 600 mg tablet 600 mg PO Q6H PRN (Reason: fever or pain) Qty: 30 0RF amoxicillin-pot clavulanate [Augmentin] 500-125 mg tablet 1 tab PO TID 7 Days Qty: 21 0RF prednisone 50 mg tablet 50 mg PO DAILY Qty: 5 0RF ondansetron HCl 4 mg tablet 4 mg PO Q8H PRN (Reason: nausea and vomiting) Qty: 14 0RF Chloraseptic Max Sore Throat 1.5-33 % spray,non-aerosol 1 spray mucous membrane Q6-8H PRN (Reason: sore throat) Qty: 118 0RF Rx Instructions: leave on area for 15 seconds then spit out oseltamivir [Tamiflu] 75 mg capsule 75 mg PO BID 5 Days Qty: 10 0RF bacitracin 500 unit/gram ointment 1 appl topical BID 7 Days Qty: 28 0RF acetaminophen [Tylenol Extra Strength] 500 mg tablet 1,000 mg PO Q6H PRN (Reason: fever or pain) Qty: 20 0RF ibuprofen 400 mg tablet 400 mg PO TID PRN (Reason: fever or pain) Qty: 30 0RF cyclobenzaprine 10 mg tablet 10 mg PO TID PRN (Reason: muscle spasm) Qty: 20 0RF lidocaine 5 % adhesive patch,medicated 1 patch topical DAILY Qty: 30 0RF Rx Instructions: leave on most painful area for up to 12 hrs Referrals: [facility] [Provider Group] (Call to establish and follow up with an orthopedic provider.) Rachelle Gresham PA [Primary Care Provider] - Interventions: ED Discharge Assessment Last Done: 09/08/24 19:18 Discharge Date/Time: 09/08/24 19:19 Print Language: Uruguayan
[2024-09-08] MEDS: Ketorolac Tromethamine 15 MG/ML VIAL IM (18:56)
[2024-09-08] MEDS: oxyCODONE HCl Immed Release 5 MG TABLET PO (18:56)
[2024-09-08] MEDS: Naloxone HCl Nasal TAKE HOME 4 MG SPRAY 8 MG NOSTRILALT (19:14)
[2024-09-08 19:18] VITALS: BP 136/76; PULSE 96; RESP 18; TEMP 37.2; O2SAT 99
== END 2024-09-08 19:19 | disposition home or self-care (01) ==
PROVIDERS: Emergency Provider Internal Medicine; PCP Physician Assistant Medical
DX: S92.352A Displaced fracture of fifth metatarsal bone, left foot, initial encounter for closed fracture (principal); W01.0XXA Fall on same level from slipping, tripping and stumbling without subsequent striking against object, initial encounter; Y93.9 Activity, unspecified; Y92.9 Unspecified place or not applicable; Y99.9 Unspecified external cause status
CPT/HCPCS: 29515; 96372; 99283; 99284; J1885

== ENCOUNTER 2024-10-04 08:40 | Emergency (ER) | payer OTHER, SELFPAY ==
--- NOTE | ~2024-10-04 | CT_ITS ---
EXAMINATION: CT ABDOMEN AND PELVIS WITH CONTRAST CLINICAL INFORMATION: Abdominal pain COMPARISON: None available. TECHNIQUE: Multidetector volumetric images were obtained from the superior aspect of the liver through the pubic symphysis following administration 85 mL of Omnipaque 350 intravenous contrast. Sagittal and coronal reformatted images were obtained on the technologist's workstation. Oral contrast: No This CT examination was performed using dose optimization techniques as appropriate, variously including the following: *Automated exposure control *Adjustment of mA and/or kV according to patient size (this includes techniques or standardized protocols for targeted exams where dose is matched to indication/reason for exam; i.e. extremities or head) *Use of iterative reconstruction technique DLP: 531 mGy/cm. FINDINGS: LUNG BASES: The visualized lung bases are unremarkable. LIVER, GALLBLADDER, AND BILIARY TREE: The liver is normal in size, shape, and attenuation. No focal hepatic lesion or biliary ductal dilatation is present. The gallbladder is unremarkable with no evidence of radiopaque gallstones, gallbladder wall thickening, or obvious pericholecystic inflammatory changes. PANCREAS: Unremarkable. SPLEEN: Unremarkable. ADRENAL GLANDS: Unremarkable. KIDNEYS AND URETERS: The kidneys are normal in size, shape, and attenuation. No hydronephrosis, hydroureter, or calculi seen. No perinephric stranding. BLADDER: Unremarkable. GASTROINTESTINAL TRACT: Small bowel loops are normal caliber. There is mild intramural fatty deposition in terminal ileum and ascending colon, nonspecific. No pericolic fat stranding seen. Stomach is nondistended and appears unremarkable. Appendix is not visualized. ABDOMINAL WALL: No significant hernia is appreciated. LYMPH NODES: Normal. VASCULAR: Unremarkable. PELVIC VISCERA: There is 2.7 x 3.0 x 2.7 cm nonenhancing right ovarian cyst. The uterus is anteverted and appears unremarkable. Small amount of free fluid in the cul-de-sac. OSSEOUS STRUCTURES: Unremarkable. CT/CT abdomen pelvis w IV con IMPRESSION: No acute intra-abdominal process seen. There is a right ovarian 3 cm simple cyst. No bowel obstruction. Nonspecific intramural fat within the ascending colon and terminal ileum. Fleischner guidelines were followed. Electronically signed by: Narinder Walls MD 10/04/2024 11:46 AM [facility]
[2024-10-04 08:45] VITALS: BP 138/98; PULSE 56; O2SAT 98
[2024-10-04 08:57] VITALS: BP 143/81; PULSE 67; RESP 18; TEMP 36.9; O2SAT 100
[2024-10-04 09:00] VITALS: BMI 32.0
[2024-10-04 09:16] LABS: MANUAL DIFF FLAG NO
[2024-10-04] MEDS: ondansetron HCL 4 MG/2 ML VIAL IVPUSH (09:16)
[2024-10-04 09:23] LABS: Basophils Absolute Auto 0.1 X10*3/uL (0.0-0.2); Basophils Percent Auto 0.4 % (0-2); Eosinophils Absolute Auto 0.2 X10*3/uL (0.0-0.4); Eosinophils Percent Auto 1.1 % (0-4); Hematocrit 42.6 % (37.0-47.0); Hemoglobin 14.4 g/dl (12.0-16.0); Imm Gran Abs Auto 0.13 X10*3/uL (0.00-0.03); Imm Gran Pct Auto 0.7 % (0.0-0.4); Lymphocytes Absolute Auto 1.1 X10*3/uL (1.2-4.9); Lymphocytes Percent Auto 5.6 % (20-40); Mean Corpuscular HGB Conc 33.8 g/dl (31.0-35.0); Mean Corpuscular Hemoglobin 28.5 pg (27.0-33.0); Mean Corpuscular Volume 84.2 fL (80.0-98.0); Monocytes Absolute Auto 0.7 X10*3/uL (0.1-1.2); Monocytes Percent Auto 3.7 % (2-11); Neutrophils Percent Auto 88.5 % (45-73); Platelet Count 267 X10*3/uL (160-400); Red Blood Count 5.06 X10*6/uL (4.20-5.50); Red Cell Distribution Width 13.1 % (11.0-16.0); White Blood Count 19.2 X10*3/uL (4.8-10.8)
[2024-10-04 09:34] LABS: Alanine Aminotransferase 9 U/L (0-31); Albumin Level 4.4 g/dL (3.5-5.0); Alkaline Phosphatase 96 U/L (39-117); Anion Gap 15 (12-20); Aspartate Amino Transferase 21 U/L (5-31); Bilirubin Total 0.8 mg/dL (0.0-1.0); Blood Urea Nitrogen 9 mg/dL (9-16); Calcium 9.7 mg/dL (8.4-10.2); Carbon Dioxide 19 mmol/L (22-29); Chloride 110 mmol/L (96-108); Creatinine Clr Calc Pharmacy 110.2; Estimated Glomerular Filt Rate > 60; Glucose Random 149 mg/dL (60-115); Lipase 9 U/L (8-78); Potassium 4.1 mmol/L (3.3-5.1); Sodium 140 mmol/L (135-145); Total Protein 7.9 g/dL (6.5-8.0)
[2024-10-04 09:54] LABS: Influenza A PCR NEGATIVE (Negative); Influenza B PCR NEGATIVE (Negative); Resp Syncy Virus RNA Qual PCR NEGATIVE (Negative); SARS COV2 PCR INHOUSE NEGATIVE (Negative)
--- OUTSIDE RECORDS SUMMARY | 2024-10-04 10:08 | XMS_ITS | Encounter Summary ---
Author Organization [facility] Address [address] [place] [address] Phone Care Team Providers Care Mri Assistant Name Role Phone Unavailable Primary Care Provider Unavailabl e Encounter Details Date Type Department Care Team (Late st Contact Info) Description 01/29/2018 Conversion Encounter [facility] [address] [address] Social History Tobacco Use Types Packs/Day Years Used Date Smoking Tobacco: Never Assessed Comments Unknown Sex and Gender Information Value Date Recorded Sex Assigned at Not on file Legal Sex Female 6:23 PM EDT Gender Identity Not on file Sexual Orientation Not on file documented as of this encounter Plan of Treatment Not on file documented as of this encounter Visit Diagnoses Not on filedocumented in this encounter
--- OUTSIDE RECORDS SUMMARY | 2024-10-04 10:08 | XMS_ITS | Clinical Summary ---
Author Organization [facility] Address [address] [place] [address] Care Team Providers Care Field Rep Name Role Phone Carlos Madison MD Primary Care Provider [phone] Surgical History Surgery Date Site/Laterality Comments SECTION PROCEDURE: HISTORICAL Medical History Medical History Date Comments Anxiety state DX:Anxiety state Asthma DX:Asthma Epilepsy (CMS/HCC) DX:Epilepsy ( HCC); COMMENT: has not had seizure since age 13, no medications at this time Social History Tobacco Use Types Packs/Day Years Used Date Smoking Tobacco: Never Smokeless Tobacco: Never Alcohol Use Standard Drinks/Week Comments Never 0 (1 standard drink = 0.6 oz pur e alcohol) Sex and Gender Information Value Date Recorded Sex Assigned at Not on file Gender Identity Not on file Sexual Orientation Not on file Obstetrics History Plan of Treatment Health Maintenance Due Date Last Done Comments DTaP,Tdap,and Td Vaccines (1 - Tdap) 2014 Hepatitis B Vaccines (1 of 3 - 19+ 3-dose series) 2014 Cervical Cancer Screening: P ap Smear 2016 COVID-19 Vaccine (2023-2 5 season) 2024 Influenza Vaccine (#1) 2024 HIB Vaccines Aged Out No longer eligi ble based on patient's age to complete this topic HPV Vaccines Aged Out No longer eligi ble based on patient's age to complete this topic Hepatitis A Vaccines Aged Out No long er eligible based on patient's age to complete this topic IPV Vaccines Aged Out No longer eligi ble based on patient's age to complete this topic MMR Vaccines Aged Out No longer eligi ble based on patient's age to complete this topic Meningococcal ACWY Vaccine Aged Out N o longer eligible based on patient's age to complete this topic Pneumococcal Vaccine: Pediat rics (0 to 5 Years) and At-Risk Patients (6 to 64 Years) Aged Out No longer eligible b ased on patient's age to complete this topic RSV Immunization Patients Un marlen 20 months Aged Out No longer eligible b ased on patient's age to complete this topic Varicella Vaccines Aged Out No longer eligible based on patient's age to complete this topic Care Teams Field Rep Relationship Specialty Start Date End Date Carlos Madison MD [address] [place] [address] PCP - General Internal Medicine 03/11/21
--- OUTSIDE RECORDS SUMMARY | 2024-10-04 10:08 | XMS_ITS | Clinical Summary ---
Author Organization [facility] Address [address] [place] [id number] Phone Care Team Providers Care Airborne Operations Manager Name Role Phone Unavailable Primary Care Provider Unavailabl e Immunizations Name Administration Dates Next Due DTaP 05/18/2001, 7,04/17/1996,02/07,1995 HPV, Quadrivalent 11/05/2013 Hep B, ped/adol 07/24/1996,1995,1995 Hib (PRP-T) 11/04/1997, 6,02/08/1996,12/20 IPV 05/18/2001 Influenza, injectable, quadrivalent 08/24/2012 Influenza, injectable, quadr ivalent, preservative free 05/16/2014 MMR 05/18/2001,11/04/1997 Meningococcal Conj (Menactra) MCV4P 08/24/2012,0 12/24/2008 OPV 04/17/1996,02/08/1996,1995 Tdap 06/19/2014,12/24/2008 Varicella 12/24/2008,12/21/1996 Family History Relation Name Status Comments Mother bio mother bipo lar diagnosed with NONPSYCHOT BRAIN SYN NOS Other Siblings: hypot hyroidism (1 sibling) Social History Tobacco Use Types Packs/Day Years Used Date Smoking Tobacco: Never Assessed Comments Unknown Sex and Gender Information Value Date Recorded Sex Assigned at Not on file Legal Sex Female 6:23 PM EDT Gender Identity Not on file Sexual Orientation Not on file Last Filed Vital Signs Vital Sign Reading Time Taken Comments Blood Pressure 118/68 08/05/2014 12:00 AM EST Pulse - - Temperature 37 ??C (98.6 ??F) 08/05/2014 12:00 AM EST Respiratory Rate - - Oxygen Saturation 94% 03/29/2014 12:00 AM EDT Inhaled Oxygen Concentration - - Weight 87.5 kg (193 lb) 08/05/2014 12:00 AM EST Height 162.6 cm (5' 4 ) 08/05/2014 12:00 AM EST Body Mass Index 33.13 08/05/2014 12:00 AM EST Plan of Treatment Health Maintenance Due Date Last Done Comments HPV Vaccines (2 - 3-dose series) 12/03/2013 11/05/2013 Influenza Vaccines (#1) 2024 05/16/2014, 08/24 COVID-19 Vaccine ( season) 2024 DTaP,Tdap,and Td Vaccines (8 - Td or Tdap) 06/19/2024 06/19/2014, 12/24/2008, 05/18/2001, Additional history exists Hepatitis B Vaccines Completed 07/24/1996, 1995, 1995 HIB Vaccines Completed 11/04/1997, 02/1996, 02/08/1996, Additional history exists IPV Vaccines Completed 05/18/2001, 02/1996, 02/08/1996, Additional history exists MMR Vaccines Completed 05/18/2001, 11/04/1997 Varicella Vaccines Completed 12/24/2008, 12/21/1996 Meningococcal Vaccine Completed 08/24/2012, 009 Hepatitis A Vaccines Aged Out No long er eligible based on patient's age to complete this topic Men B Vaccine Aged Out No longer elig ible based on patient's age to complete this topic Pneumococcal Vaccine Aged Out No long er eligible based on patient's age to complete this topic
--- NOTE | 2024-10-04 10:31 | ED_ITS ---
HPI - General Adult General Chief complaint: Abdominal Pain Stated complaint: VOMITING X2H PER EMS Time Seen by Provider: 10/04/24 10:31 Source: patient and EMS Mode of arrival: EMS Limitations: no limitations History of Present Illness ED Provider: Dary Clark PA-C HPI narrative: Patient is a 28 year old assigned female at with a history of asthma, marijuana use, and recent surgery on a fractured left 5th metatarsal presenting to the emergency department today with epigastric abdominal pain, nausea, and vomiting. Patient states that over the last few hours she has been having epigastric abdominal pain, nausea, and vomiting. Patient denies any dizziness, lightheadedness, fever, chills, blurry vision, double vision, loss of vision, chest pain, difficulty breathing, shortness of breath, back pain, night sweats, pain with urination, increased urinary frequency, increased urinary urgency, blood in her urine or stool, syncope or a near syncopal episode, recent trauma or falls, bowel incontinence, bladder incontinence, or any other complaints at this time. Onset (ago): hour(s) Location: abdomen Relieving factors: none Exacerbating factors: none Associated symptoms: nausea/vomiting Treatments prior to arrival: none Related Data Previous Rx's ?Medication ?Instructions ?Recorded cyclobenzaprine 10 mg tablet 10 mg PO TID PRN muscle spasm #14 04/19/23 tabs lidocaine 4 % topical patch 1 patch topical DAILY PRN pain #10 04/19/23 ea ibuprofen 600 mg tablet 600 mg PO Q6H PRN fever or pain 06/16/23 #30 tabs oseltamivir 75 mg capsule (Tamiflu) 75 mg PO BID 5 days #10 caps 11/27/23 phenol 1.5 %-glycerin 33 % mucosal 1 spray mucous membrane Q6-8H PRN 11/27/23 spray (Chloraseptic Max Sore sore throat #118 mL Throat) acetaminophen 500 mg tablet 1,000 mg (2 x 500 mg) PO Q6H PRN 08/11/24 (Tylenol Extra Strength) fever or pain #20 tabs bacitracin 500 unit/gram topical 1 appl topical BID 7 days #28 grams 08/11/24 ointment ibuprofen 400 mg tablet 400 mg PO TID PRN fever or pain 08/11/24 #30 tabs amoxicillin 500 mg-potassium 1 tab PO TID 7 days #21 tabs 08/26/24 clavulanate 125 mg tablet (Augmentin) ondansetron HCl 4 mg tablet 4 mg PO Q8H PRN nausea and 08/26/24 vomiting #14 tabs prednisone 50 mg tablet 50 mg PO DAILY #5 tabs 08/26/24 cyclobenzaprine 10 mg tablet 10 mg PO TID PRN muscle spasm #20 08/30/24 tabs lidocaine 5 % topical patch 1 patch topical DAILY #30 ea 08/30/24 oxycodone 5 mg tablet 5 mg PO Q8H PRN pain #3 tabs 09/08/24 cefuroxime axetil 250 mg tablet 250 mg PO BID 7 days #14 tabs 10/04/24 ondansetron 4 mg disintegrating 4 mg PO Q8H 3 days #9 tabs 10/04/24 tablet Allergies Allergy/AdvReac Type Severity Reaction Status Date / Time No Known Allergies Allergy Verified 10/04/24 09:01 [No Known Allergies*] Review of Systems 2 Constitutional: Constitutional: Reports no additional constitutional complaints, Denies chills, Denies fever(s) and Denies night sweats Eyes: Eyes: Reports no additional eye complaints, Denies blurry vision, Denies change in vision, Denies diplopia, Denies eye discharge, Denies loss of vision and Denies eye pain ENT: Denies dizziness Cardiovascular: Cardiovascular: Reports no additional cardiovascular complaints, Denies chest pain, Denies lightheadedness, Denies Loss of Consciousness and Denies dyspnea Respiratory: Respiratory: Reports no additional respiratory complaints and Denies dyspnea Gastrointestinal: Gastrointestinal: Reports no additional gastrointestinal complaints, Reports abdominal pain, Denies melena, Denies hematochezia, Denies change in bowel habits, Denies change in stool character, Reports nausea and Reports vomiting Genitourinary: Genitourinary: Denies hematuria, Denies urinary frequency, Denies dysuria, Denies urinary incontinence, Denies urinary hesitancy and Denies urinary urgency Musculoskeletal: Musculoskeletal: Reports no additional musculoskeletal complaints, Denies numbness and Denies tingling Neurologic: Denies dizziness, Denies loss of vision, Denies numbness and Denies tingling Psychiatric: Psychiatric: Reports no additional psychiatric complaints Endocrine: Endocrine: Reports no additional endocrine complaints Hematologic/Lymphatic: Hematologic/Lymphatic: Reports no additional hematologic/lymphatic complaints Allergic/Immunologic: Allergic/Immunologic: Reports no additional allergic/immunologic complaints [facility] Past Medical History Attestation statement: The following information was validated with the patient. Source: old records reviewed and nursing notes reviewed Medical History Asthma Epilepsy Social History Social History Alcohol intake: current Alcohol intake frequency: a few times a week Alcohol type: wine Patient Tobacco Use Status: Never used Tobacco Smoked in Last 30 Days: No Substance Use Type: Marijuana Advance Directives: No Advance Directives Information Provided: Yes Patient : No Physical Exam ED Vital Signs: Vital Signs - 24 hr 10/04/24 08:57 10/04/24 11:39 Temperature 98.5 F 98.4 F Pulse Rate 67 57 Respiratory Rate 18 18 Blood Pressure 143/81 H 143/78 H Pulse Oximetry 100 98 Oxygen Delivery Method Room Air Room Air BMI result Body Mass Index 32.0 Const General: cooperative, no acute distress, alert and awake Nutritional Appearance: well nourished Orientation/consciousness: patient oriented x3 Limitations: no limitations HENHI Head: Yes normal to inspection and Yes atraumatic Ears: hearing grossly normal bilaterally and external ears normal General nose exam: Normal external nose present, no nasal discharge noted and no epistaxis Face and sinus: Yes normal facial exam, No abrasion and No laceration Mouth: Normal oral and palatal mucosa present, no drooling and no muffled voice Eyes General: appearance normal, both eyes and all related structures Periorbital: periorbital findings normal Eyelids: Yes eyelids normal Conjunctivae: conjunctivae normal Pupils: Equal, round and reactive pupils present EOM: EOMs intact bilaterally Neck Neck: Yes normal visual inspection, Yes full ROM and Yes no lymphadenopathy Chest Chest palpation & inspection: normal inspection of the chest Resp Effort & Inspection: normal respiratory effort and able to speak in complete sentences GI Inspection: Yes normal to inspection Palpation (GI): Soft to palpation, not firm, nontender, no guarding and not rigid Neuro General: patient oriented x3 and moves all extremities Cranial nerves: Yes Equal, round and reactive pupils present Cognition (Neuro): normal cognition Extrem Other: left lower leg in splint secondary to known left 5th metatarsal fracture General: Yes full ROM and Yes capillary refill normal Psych Appearance: grossly normal Mental Status: mental status grossly normal Affect: normal affect Attitude: cooperative Thought process: Normal thought process present Thought content: Normal thought content present Insight: Good insight present (Psych) Medications Administered Discontinued Medications Generic Name Dose Route Start Last Admin Trade Name Julianne PRN Reason Stop Dose Admin Ceftriaxone Sodium 1 gm 10/04/24 11:00 10/04/24 11:35 Ceftriaxone Sodium 1 Gm Vial IVPUSH 10/04/24 11:01 1 gm ONCE ONE Administration Diphenhydramine HCl 25 mg 10/04/24 10:32 10/04/24 10:51 Diphenhydramine Hcl 50 Mg/Ml Vial IVPUSH 10/04/24 10:33 25 mg ONCE ONE Administration Sodium Chloride 1,000 mls @ 999 mls/hr 10/04/24 11:30 10/04/24 11:34 Ns IV 10/04/24 12:30 999 mls/hr .Q1H1M CHRISTIN Administration Iohexol 100 ml 10/04/24 11:13 10/04/24 11:13 Iohexol 350 Mg/Ml 100 Ml Infus..Btl IV 10/04/24 11:14 85 ml ONCE ONE Administration Metoclopramide HCl 10 mg 10/04/24 10:32 10/04/24 10:52 Metoclopramide Hcl 10 Mg/2 Ml Vial IVPUSH 10/04/24 10:33 10 mg ONCE ONE Administration Morphine Sulfate 4 mg 10/04/24 10:32 10/04/24 10:52 Morphine Sulfate 4 Mg/Ml Cartridge IVPUSH 10/04/24 10:33 4 mg ONCE ONE Administration Protocol Ondansetron HCl 4 mg 10/04/24 09:02 10/04/24 09:16 Ondansetron Hcl 4 Mg/2 Ml Vial IVPUSH 10/04/24 09:03 4 mg ONCE ONE Administration Pantoprazole Sodium 40 mg 10/04/24 10:32 10/04/24 10:49 Pantoprazole Sodium 40 Mg/10 Ml Vial IVPUSH 10/04/24 10:33 40 mg ONCE ONE Administration Medical Decision Making Medical Decision Making MDM Narrative: Patient is a 28 year old assigned female at with a history of asthma, marijuana use, and recent surgery on a fractured left 5th metatarsal presenting to the emergency department today with epigastric abdominal pain, nausea, and vomiting. Patient's physical exam was unremarkable. Patient's blood work showed a WBC count of 19.2 but otherwise unremarkable. Patient's urine showed evidence of an acute UTI - given her symptoms, will treat. Patient's abdomen/pelvis CT showed an ovarian cyst but was otherwise unremarkable. I explained my physical exam findings as well as all test results to the patient. I answered all questions asked by the patient. Patient's clinical presentation is most consistent with UTI vs. Pyelonephritis vs. CHS. Patient's clinical presentation isnot consistent with sepsis (@1200). Patient received benadryl, reglan, morphine, zofran, protonix, IV fluids, and ceftriaxone which, upon re- evaluation, she stated it helped her symptoms significantly. I stressed the importance of the patient taking her medication as directed (either prescribed or as the over the counter packaging recommends). I stressed the importance of the patient following up with her primary care provider and a GI specialist. I stressed the importance of the patient returning to the emergency department immediately if her symptoms were to worsen or if she were to develop any dizziness, shortness of breath, difficulty breathing, chest pain, blurry vision, loss of vision, nausea, vomiting, abdominal pain, fever, chills, back pain, or any other complaints. Patient verbalized agreement and understanding with this treatment plan and discharge. Differential Diagnosis Differential Diagnoses: The differential diagnosis associated with the presentation includes UTI Pyelonephritis - no CT evidence of this CHS Gastroenteritis Nausea Vomiting Admission/Observation Consideration of admission/observation: Escalation of care including admission/observation considered Patient would have been admitted to the hospital had her work up had any findings where hospital admission was appropriate and her clinical presentation warranted hospital admission. Lab Data [facility] Lab Attestation statement: I reviewed the patient's lab results. My interpretation of these results are in the [facility] Rationale portion of this note. 10/04/24 09:13 10/04/24 09:13 Labs: Lab Results 10/04/24 10/04/24 Range/Units 09:13 10:34 WBC 19.2 H (4.8-10.8) X10*3/uL RBC 5.06 (4.20-5.50) X10*6/uL Hgb 14.4 (12.0-16.0) g/dl Hct 42.6 (37.0-47.0) % MCV 84.2 (80.0-98.0) fL MCH 28.5 (27.0-33.0) pg MCHC 33.8 (31.0-35.0) g/dl RDW 13.1 (11.0-16.0) % Plt Count 267 (160-400) X10*3/uL MPV 12.0 (9.4-12.3) fL Immature Gran % (Auto) 0.7 H (0.0-0.4) % Neut % (Auto) 88.5 H (45-73) % Lymph % (Auto) 5.6 L (20-40) % Ware % (Auto) 3.7 (2-11) % Eos % (Auto) 1.1 (0-4) % Baso % (Auto) 0.4 (0-2) % Lymph # (Auto) 1.1 L (1.2-4.9) X10*3/uL Ware # (Auto) 0.7 (0.1-1.2) X10*3/uL Eos # (Auto) 0.2 (0.0-0.4) X10*3/uL Baso # (Auto) 0.1 (0.0-0.2) X10*3/uL Abs Immat Gran (auto) 0.13 H (0.00-0.03) X10*3/uL Absolute Neuts (auto) 17.0 H (2.0-8.3) x10*3/uL Absolute Nucleated RBC 0.000 (0.0-0.012) X10*3/uL Nucleated RBC % (auto) 0.0 (0.0-0.2) /100WBC Sodium 140 (135-145) mmol/L Potassium 4.1 (3.3-5.1) mmol/L Chloride 110 H (96-108) mmol/L Carbon Dioxide 19 L (22-29) mmol/L Anion Gap 15 (12-20) BUN 9 (9-16) mg/dL Creatinine 0.77 (0.5-1.4) mg/dL Estim Creat Clear Calc 110.2 Estimated GFR > 60 Random Glucose 149 H (60-115) mg/dL Calcium 9.7 (8.4-10.2) mg/dL Magnesium 1.8 (1.6-2.6) mg/dL Total Bilirubin 0.8 (0.0-1.0) mg/dL AST 21 (5-31) U/L ALT 9 (0-31) U/L Alkaline Phosphatase 96 (39-117) U/L Total Protein 7.9 (6.5-8.0) g/dL Albumin 4.4 (3.5-5.0) g/dL Lipase 9 (8-78) U/L Beta HCG, Quant < 2 mIU/mL Urine Color Yellow Urine Appearance Cloudy Urine pH 8.5 (5.0-9.0) Ur Specific [place] 1.015 (1.005-1.025) Urine Protein Trace (Neg-Trace) mg/dL Urine Glucose (UA) Negative (Negative) mg/dL Urine Ketones 15 (Negative) mg/dL Urine Blood Trace (Negative) Urine Nitrite Negative (Negative) Ur Leukocyte Esterase Small (1+) H (Negative) Urine RBC 11-20 H (0-2) /HPF Urine WBC >50 H (0-5) /HPF Ur Squamous Epith Cells >20 (0-2) /HPF Urine Bacteria 4+ (None Seen) Hyaline Casts 6-10 (0-2) /LPF Urine Test NEGATIVE (NEGATIVE) Influenza Type A (PCR) NEGATIVE (Negative) Influenza Type B (PCR) NEGATIVE (Negative) RSV RNA Qual (PCR) NEGATIVE (Negative) SARS-CoV-2 RNA (RT-PCR) NEGATIVE (Negative) Independent Interpretation I performed an independent interpretation of an: CT Scan Interpretation: My interpretation is in agreement with the radiologist's impression of this imaging study. L Report Number: [id number]: Total DLP = 531.00 mGy-cm EXAMINATION: CT ABDOMEN AND PELVIS WITH CONTRAST CLINICAL INFORMATION: Abdominal pain COMPARISON: None available. TECHNIQUE: Multidetector volumetric images were obtained from the superior aspect of the liver through the pubic symphysis following administration 85 mL of Omnipaque 350 intravenous contrast. Sagittal and coronal reformatted images were obtained on the technologist's workstation. Oral contrast: No This CT examination was performed using dose optimization techniques as appropriate, variously including the following: *Automated exposure control *Adjustment of mA and/or kV according to patient size (this includes techniques or standardized protocols for targeted exams where dose is matched to indication/reason for exam; i.e. extremities or head) *Use of iterative reconstruction technique DLP: 531 mGy/cm. FINDINGS: LUNG BASES: The visualized lung bases are unremarkable. LIVER, GALLBLADDER, AND BILIARY TREE: The liver is normal in size, shape, and attenuation. No focal hepatic lesion or biliary ductal dilatation is present. The gallbladder is unremarkable with no evidence of radiopaque gallstones, gallbladder wall thickening, or obvious pericholecystic inflammatory changes. PANCREAS: Unremarkable. SPLEEN: Unremarkable. ADRENAL GLANDS: Unremarkable. KIDNEYS AND URETERS: The kidneys are normal in size, shape, and attenuation. No hydronephrosis, hydroureter, or calculi seen. No perinephric stranding. BLADDER: Unremarkable. GASTROINTESTINAL TRACT: Small bowel loops are normal caliber. There is mild intramural fatty deposition in terminal ileum and ascending colon, nonspecific. No pericolic fat stranding seen. Stomach is nondistended and appears unremarkable. Appendix is not visualized. ABDOMINAL WALL: No significant hernia is appreciated. LYMPH NODES: Normal. VASCULAR: Unremarkable. PELVIC VISCERA: There is 2.7 x 3.0 x 2.7 cm nonenhancing right ovarian cyst. The uterus is anteverted and appears unremarkable. Small amount of free fluid in the cul-de-sac. OSSEOUS STRUCTURES: Unremarkable. CT/CT abdomen pelvis w IV con IMPRESSION: No acute intra-abdominal process seen. There is a right ovarian 3 cm simple cyst. No bowel obstruction. Nonspecific intramural fat within the ascending colon and terminal ileum. Fleischner guidelines were followed. Electronically signed by: Narinder Walls MD 10/04/2024 11:46 AM [facility] [place] Dictated By: Narinder Walls MD Signed By: Electronically signed by Narinder Walls MD 10/04/24 1146 Radiology Impression Discussion of test interpretation with radiology: I have reviewed the radiologist's reading. Independent Historian Clinical information obtained from an independent historian. History obtained from or confirmed by: EMS (EMS provided additional history and confirmed the history provided by the patient.) Prescription Management I considered prescription management with: Antibiotic (patient prescribed an antibiotic for UTI) Critical Care Time Critical Care Time Critical Care Time: Yes Total Critical Care Time: 36 Attestation: I spent 36 minutes of Critical Care Time with this patient. This does not include time spent on separately reported billable procedures. Discharge Plan Discharge Clinical Impression: UTI (urinary tract infection), Nausea & vomiting, Marijuana smoker Patient Disposition: Home, Self-Care Instructions: Urinary Tract Infection in Women (DC), Acute Nausea and Vomiting (ED) Additional Instructions: Please refrain from marijuana use. Please take your medication as prescribed. Follow up with your primary care provider and if your symptoms persist - a GI specialist. Return to the emergency department immediately if your symptoms worsen or if you develop any dizziness, shortness of breath, difficulty breathing, chest pain, blurry vision, loss of vision, nausea, vomiting, abdominal pain, fever, chills, back pain, or any other complaints. Prescriptions: New cefuroxime axetil 250 mg tablet 250 mg PO BID 7 Days Qty: 14 0RF ondansetron 4 mg tablet,disintegrating 4 mg PO Q8H 3 Days Qty: 9 0RF No Action cyclobenzaprine 10 mg tablet 10 mg PO TID PRN (Reason: muscle spasm) Qty: 14 0RF lidocaine 4 % adhesive patch,medicated 1 patch topical DAILY PRN (Reason: pain) Qty: 10 0RF Rx Instructions: may leave on for up to 12 hrs ibuprofen 600 mg tablet 600 mg PO Q6H PRN (Reason: fever or pain) Qty: 30 0RF amoxicillin-pot clavulanate [Augmentin] 500-125 mg tablet 1 tab PO TID 7 Days Qty: 21 0RF prednisone 50 mg tablet 50 mg PO DAILY Qty: 5 0RF ondansetron HCl 4 mg tablet 4 mg PO Q8H PRN (Reason: nausea and vomiting) Qty: 14 0RF oxycodone 5 mg tablet 5 mg PO Q8H PRN (Reason: pain) Qty: 3 0RF Rx Instructions: Partial Fill upon patient request. Chloraseptic Max Sore Throat 1.5-33 % spray,non-aerosol 1 spray mucous membrane Q6-8H PRN (Reason: sore throat) Qty: 118 0RF Rx Instructions: leave on area for 15 seconds then spit out oseltamivir [Tamiflu] 75 mg capsule 75 mg PO BID 5 Days Qty: 10 0RF bacitracin 500 unit/gram ointment 1 appl topical BID 7 Days Qty: 28 0RF acetaminophen [Tylenol Extra Strength] 500 mg tablet 1,000 mg PO Q6H PRN (Reason: fever or pain) Qty: 20 0RF ibuprofen 400 mg tablet 400 mg PO TID PRN (Reason: fever or pain) Qty: 30 0RF cyclobenzaprine 10 mg tablet 10 mg PO TID PRN (Reason: muscle spasm) Qty: 20 0RF lidocaine 5 % adhesive patch,medicated 1 patch topical DAILY Qty: 30 0RF Rx Instructions: leave on most painful area for up to 12 hrs Referrals: [facility] [place] [facility] [Provider Group] (If your symptoms persist - please call to establish and follow up with a GI specialist.) Alfie Camilo MD [Primary Care Provider] - Print Language: Ukrainian
[2024-10-04 10:44] LABS: Appearance Urine Cloudy; Color Urine Yellow; Glucose Urine UA Negative (Negative); Leukocyte Esterase Urine Small (1+) (Negative); Nitrite Urine Negative (Negative); PH 8.5 (5.0-9.0); Specific Gravity - Urine 1.015 (1.005-1.025); UMIC TRIGGER UACC YES; Urine Blood Trace (Negative); Urine Ketones 15 mg/dL (Negative); Urine Protein Trace mg/dL (Neg-Trace)
[2024-10-04 10:45] LABS: UPreg QC Valid YES; Urine Pregnancy NEGATIVE (NEGATIVE)
[2024-10-04] MEDS: Pantoprazole Sodium 40 MG/10 ML VIAL IVPUSH (10:49)
[2024-10-04] MEDS: diphenhydrAMINE HCL 50 MG/ML VIAL 25 MG IVPUSH (10:51)
[2024-10-04] MEDS: Morphine Sulfate 4 MG/ML CARTRIDGE IVPUSH (10:52)
[2024-10-04] MEDS: Metoclopramide HCl 10 MG/2 ML VIAL IVPUSH (10:52)
[2024-10-04 10:54] LABS: Bacteria Urine 4+ (None Seen); Squamous Epithelial Cell Urine >20 /HPF (0-2); UACC Culture Trigger YES; WBC Urine >50 /HPF (0-5)
[2024-10-04 11:02] LABS: HCG Quantitative < 2 mIU/mL
[2024-10-04] MEDS: iohexoL 350 MG/ML 100 ML INFUS..BTL IV (11:13)
[2024-10-04] MEDS: 0.9 % Sodium Chloride 1,000 ML 999 ML IV (11:34)
[2024-10-04] MEDS: cefTRIAXone sodium 1 GM VIAL IVPUSH (11:35)
[2024-10-04 11:36] LABS: Magnesium 1.8 mg/dL (1.6-2.6)
[2024-10-04 11:39] VITALS: BP 143/78; PULSE 57; RESP 18; TEMP 36.9; O2SAT 98
[2024-10-04 13:28] VITALS: BP 143/78; PULSE 57; RESP 18; TEMP 36.9; O2SAT 98
== END 2024-10-04 13:29 | disposition home or self-care (01) ==
PROVIDERS: Physician Assistant Medical; Emergency Provider Emergency Medicine; PCP Internal Medicine
DX: N39.0 Urinary tract infection, site not specified (principal); R11.2 Nausea with vomiting, unspecified; R10.13 Epigastric pain; F12.90 Cannabis use, unspecified, uncomplicated; Z03.818 Encounter for observation for suspected exposure to other biological agents ruled out
CPT/HCPCS: 0241U; 36415; 74177; 80053; 81001; 81025; 83690; 83735; 84702; 85025; 87086; 87147; 96374; 96375; 99284; J0696; J1200; J2270; J2405; J2470; J2765; Q9967

== ENCOUNTER → 2024-10-04 10:32 | Outpatient (BNV) | payer OTHER, SELFPAY | PROVIDERS: Emergency Provider Emergency Medicine; PCP Internal Medicine; Visit Provider Radiology Diagnostic Radiology | DX: R10.9 Unspecified abdominal pain (principal) | CPT/HCPCS: 74177 ==

== ENCOUNTER 2025-06-08 11:03 | Emergency (ER) | payer OTHER, SELFPAY ==
--- OUTSIDE RECORDS SUMMARY | 2025-06-05 13:02 | XMS_ITS | Encounter Summary ---
Author Organization [facility] Address [address] [place] [id number] Care Team Providers Care Brown Stock Washer Name Role Phone Carlos Madison MD Primary Care Provider [phone] Reason for Visit * Reason Comments Nausea Vomiting Abdominal Pain Encounter Details Date Type Department Care Team (Late st Contact Info) Description 06/05/2025 1:02 PM EDT - 06/05/2025 7:20 PM EDT Emergency [facility] Emergency [address] [place] [id number] Dwight Restrepo MD [address] [place] [address] Viral gastroenteritis (Primary Dx) Discharge Disposition: Home or Self Care Social History Tobacco Use Types Packs/Day Years Used Date Smoking Tobacco: Never Smokeless Tobacco: Never Alcohol Use Standard Drinks/Week Comments Never 0 (1 standard drink = 0.6 oz pur e alcohol) Comments Unknown Sex and Gender Information Value Date Recorded Sex Assigned at Not on file Legal Sex Female 7:57 AM EST Gender Identity Not on file Sexual Orientation Not on file documented as of this encounter Last Filed Vital Signs Vital Sign Reading Time Taken Comments Blood Pressure 133/94 06/05/2025 7:01 PM EDT Pulse 56 06/05/2025 7:01 PM EDT Temperature 37.1 C (98.8 F) 06/05/2025 7:01 PM EDT Respiratory Rate 16 06/05/2025 7:01 PM EDT Oxygen Saturation 97% 06/05/2025 7:01 PM EDT Inhaled Oxygen Concentration - - Weight 77.1 kg (170 lb) 06/05/2025 1:38 PM EDT Height 160 cm (5' 3 ) 06/05/2025 1:38 PM EDT Body Mass Index 30.11 06/05/2025 1:38 PM EDT documented in this encounter Discharge Instructions * Discharge Instructions* Dwight Restrepo MD - 06/05/2025 6:28 PM EDT Drink Plenty of fluids Stop smoking marijuana Medication for nausea and abdominal cramp as prescribed Follow-up with your PCP if not better * Attachments The following attachments cannot be sent through Care Everywhere. * Gastroenteritis (Spanish) documented in this encounter Medications at Time of Discharge dicyclomine (BENTYL) 20 mg tablet Take 1 tablet (20 mg total) by mouth 4 (four) times a day if needed (abdominal discomfort) for up to 10 days. 20 tablet 06/05/2025 5 ondansetron ODT (ZOFRAN-ODT) 4 mg disintegrating tablet Let 1 tablet dissolve under the tongue three times daily as needed for nausea or vomiting. 10 tablet 06/05/2025 5 documented as of this encounter Ordered Prescriptions Prescription Sig Dispense Quantity Refills Last Filled Start Date End Date dicyclomine (BENTYL) 20 mg tablet Take 1 tablet (20 mg total) by mouth 4 (four) times a day if needed (abdominal discomfort) for up to 10 days. 20 tablet 06/05/2025 5 ondansetron ODT (ZOFRAN-ODT) 4 mg disintegrating tablet Let 1 tablet dissolve under the tongue three times daily as needed for nausea or vomiting. 10 tablet 06/05/2025 5 documented in this encounter Discharge Disposition Disposition Code Departure Means Destination Comment s Home or Self Care documented in this encounter Progress Notes * Nikole Moya RN - 06/05/2025 1:07 PM EDT EMS REPORT: pt coming from home with nausea, vomiting, 10/10 abdominal pain. Went to [facility] a coupledays ago and sent home with zofran. Ambulatory for EMS, alert and oriented x4. * Dwight Restrepo MD - 06/05/2025 12:56 PM EDT HPI No chief complaint on file. Patient Comes here for nausea vomiting for last 1 week patient went to [facility] 2 times with workup negative in the smoke THC and says that this is does not happen very often NO use of antibiotics patient been vomiting 10-15 times a day with abdominal cramping. No history of gallstone denies any diarrhea states she feels better after taking hot shower asking for pain medicine for abdominal pain which is diffuse no fever no chills no urinary symptom No data recorded Patient History Past Medical History: Diagnosis Date Anxiety state DX:Anxiety state Asthma DX:Asthma Epilepsy ([facility] V24, [facility] V28) DX:Epilepsy ([facility]); COMMENT: has not had seizure since age 13, no medications at this time Past Surgical History: Procedure Laterality Date SECTION PROCEDURE: HISTORICAL No family history on file. Social History Tobacco Use Smoking status: Never Smokeless tobacco: Never Substance Use Topics Alcohol use: Never Drug use: Yes Types: Marijuana/Cannabis Review of Systems Constitutional: No Weight loss, No Fever, No Chills, No Night Sweats, No Fatigue, No Malaise ENT/Mouth: No Hearing loss, No Ear Pain, No Nasal Congestion, No Sinus Pain, No Hoarseness, No sore throat, No Rhinorrhea, No Swallowing Difficulty Eyes: No Eye Pain, No Swelling, No Redness, No Foreign Body, No Discharge, No Vision Changes Cardiovascular: No Chest Pain, No SOB, No Dyspnea on Exertion, No Orthopnea, No Edema, No Palpitations Respiratory: No Cough, No Sputum, No Wheezing, No Smoke Exposure, No Dyspnea Gastrointestinal: ++Nausea, ++ Vomiting, No Diarrhea, No Constipation, ++ abdominal Pain, No Hematochezia, No Melena Genitourinary: no irregular bleeding, No Dysuria, No Urinary Frequency, No Hematuria, No Urinary Incontinence, No Urgency, No Flank Pain, No Urinary Flow Changes, No Hesitancy Musculoskeletal: No joint pain, No Myalgias, No Joint Swelling Skin: No Skin Lesions, No rash Neuro: No Weakness, No Numbness, No Paresthesias, No Loss of Consciousness, No Dizziness, No Headache Psych: No Anxiety/Panic, No Depression, No SI/HI/AH/VH, No Social Issues, Heme/Lymph: No Bruising, No Bleeding,No Lymphadenopathy Endocrine: No Polyuria, No Polydipsia, No Temperature Intolerance Review of Systems Physical Exam ED Triage Vitals [06/05/25 1307] Temp Heart Rate Resp BP 37.1 ??C (98.7 ??F) 60 20 (!) 154/65 SpO2 Temp Source Heart Rate Source Patient Position 100 % Oral Monitor Lying BP Location FiO2 (%) Right arm -- Physical Exam Vitals and nursing note reviewed. Appearance: Alert. Oriented X3. No acute distress. Anxious nauseated Eyes: PERRLA. No pallor or icterus HEENT: ATNC, pharynx normal. oral mucosa moist Neck: Normal inspection. Neck supple. CVS: Normal heart rate and rhythm. No murmur/rub/gallop ,pulses normal. Respiratory: No respiratory distress. Breath sounds normal. No wheezing/rhonchi/rales, equal air entry bilateral Abdomen: Soft diffuse abdominal tenderness no rebound tenderness or guarding, no CVA tenderness no mass palpable bowel sounds are present Skin: Skin warm and dry. Normal skin color. Normal skin turgor. Extremities: No lower extremity edema. No calf tenderness Neuro: Oriented X 3. No motor deficit. No sensory deficit cranial nerves II to XII intact no cerebellar signs speech normal ED Course & MDM ED Course as of 06/05/251830Jun 05, 2025 1822 , Urine Patient with stable labs negative CT scan for acute feeling much better now taking p.o. fluids willdischarge patient home likely with viral gastroenteritis [MZ] ED Course User Index [MZ] Dwight Restrepo MD Clinical Impressions as of 06/05/251830 Viral gastroenteritis Medical Decision Making Patient With acute nausea vomiting and diarrhea recent 3 visits in the ER CT scan of the abdomen with slight inflammation of the bowel appendix no gallstones patient feeling much better after IV hydration will discharge patient home on medicine for nausea and dicyclomine for abdominal cramps advised to stop smoking marijuana as this could be contributing to her symptom Procedures Dwight Restrepo MD 06/05/25 1431 Dwight Restrepo MD 06/05/25 1905 Dwight Restrepo MD 06/05/252113 documented in this encounter Plan of Treatment Not on file documented as of this encounter Procedures Procedure Name Priority Date/Time Associated Diagnosis Comments CT ABDOMEN PELVIS W CONTRAST STAT 06/05/2025 5:23 PM EDT CBC WITH AUTO DIFFERENTIAL STAT 06/05/2025 1:22 PM EDT CBC AND DIFFERENTIAL STAT 06/05/2025 1:22 PM EDT HCG, SERUM, QUALITATIVE STAT Add-on 06/05/2025 1:22 PM EDT LIPASE STAT 06/05/2025 1:22 PM EDT COMPREHENSIVE METABOLIC PANEL STAT 06/05/2025 1:22 PM EDT documented in this encounter Results * CT Abdomen Pelvis w Contrast (06/05/2025 5:23 PM EDT) Anatomical Region Laterality Modality Body Computed Tomogra phy 06/05/2025 5:53 PM EDT Impressions 06/05/2025 5:53 PM EDT 1. Mild diffuse thickening of the mucosa of the large bowel suggestive of an early/mild infectious or inflammatory colitis. No bowel obstruction. No evidence of appendicitis. This document has been electronically signed by: Artem Grace MD on 06/05/2025 17:53:45 Narrative 06/05/2025 5:53 PM EDT INDICATION: Abdominal pain, acute, no prior medical history CT abdomen and pelvis with IV contrast. COMPARISON: None provided. FINDINGS: Partially visualized lung bases are unremarkable. Focal fatty infiltration along the falciform ligament. Normal gallbladder. Normal spleen. Normal pancreas. Normal adrenal glands. Symmetric renal enhancement. No hydronephrosis. Appendix is normal in caliber measuring up to 5 mm. No periappendiceal or pericecal inflammatory changes. Mild thickening of the mucosa of the large bowel. No bowel obstruction. No mesenteric or retroperitoneal lymphadenopathy. Normal abdominal aorta. Normal appearance of the urinary bladder. No adnexal mass. No acute fracture or suspicious bone lesion. Procedure Note Artem Grace MD - 06/05/2025 INDICATION: Abdominal pain, acute, no prior medical history CT abdomen and pelvis with IV contrast. COMPARISON: None provided. FINDINGS: Partially visualized lung bases are unremarkable. Focal fatty infiltration along the falciform ligament. Normalgallbladder. Normal spleen. Normal pancreas. Normal adrenal glands. Symmetric renal enhancement. No hydronephrosis. Appendix is normal in caliber measuring up to 5 mm. No periappendicealor pericecal inflammatory changes. Mild thickening of the mucosa of thelarge bowel. No bowel obstruction. No mesenteric or retroperitoneal lymphadenopathy. Normal abdominal aorta. Normal appearance of the urinary bladder. No adnexal mass. No acute fracture or suspicious bone lesion. IMPRESSION: 1. Mild diffuse thickening of the mucosa of the large bowel suggestiveof an early/mild infectious or inflammatory colitis. No bowel obstruction.No evidence of appendicitis. This document has been electronically signed by: Artem Grace MD on 06/05/2025 17:53:45 Dwight Restrepo MD IMG CT PROCEDURES Final R esult * hCG, serum, qualitative (06/05/2025 1:22 PM EDT) Pathologist [facility] hCG Qual Negative Negative 06/05/2025 3:03 PM EDT [facility] Blood Venous blood specimen / Unknown Venipuncture / Unknown 06/05/2025 1:22 PM EDT 06/05/2025 1:50 PM EDT Dwight Restrepo MD LAB BLOOD ORDERABLES Aminata l Result [facility] [address] [place] [address], * (ABNORMAL) CBC auto differential (06/05/2025 1:22 PM EDT) Pathologist [facility] WBC 14.9(H) 4.8 - 10.8 K/mcL LAB HEMETOLOGY METHOD 06/05/2025 1:59 PM EDT [facility] RBC 5.20(H) 3.80 - 4.80 M/mcL LAB HEMETOLOGY METHOD 06/05/2025 1:59 PM EDT [facility] Hemoglobin 14.8 11.5 - 16.0 g/dL LAB HEMETOLOGY METHOD 06/05/2025 [facility] Hematocrit 42.6 35.0 - 47.0 % LAB HEMETOLOGY METHOD 06/05/2025 1:59 PM EDT [facility] MCV 81.9 79.0 - 98.0 FL LAB HEMETOLOGY METHOD 06/05/2025 1:59 [facility] MCH 28.5 27.0 - 32.0 pcg LAB HEMETOLOGY METHOD 06/05/2025 1:59 [facility] MCHC 34.7 32.0 - 37.0 g/dL LAB HEMETOLOGY METHOD 06/05/2025 1:59 PM [facility] RDW 12.6 11.0 - 15.0 % LAB HEMETOLOGY METHOD 06/05/2025 1:59 PM [facility] Platelets 316 130 - 400 K/mcL LAB HEMETOLOGY METHOD 06/05/2025 1:59 [facility] MPV 11.6(H) 7.0 - 11.0 FL LAB HEMETOLOGY METHOD 06/05/2025 1:59 PM [facility] NRBC 0.0 <1.0 % LAB HEMETOLOGY METHOD 06/05/2025 1:59 PM [facility] NRBC Absolute 0.00 <0.10 K/mcL LAB HEMETOLOGY METHOD 06/05/2025 1:59 [facility] Neutrophils Relative 88.6 % LAB HEMETOLOGY METHOD 06/05/2025 1:59 PM EDT [facility] Lymphocytes Relative 7.9 % LAB HEMETOLOGY METHOD 06/05/2025 1:59 PM EDT [facility] Monocytes Relative 2.8 % LAB HEMETOLOGY METHOD 06/05/2025 1:59 [facility] Eosinophils Relative 0.1 % LAB HEMETOLOGY METHOD 06/05/2025 1:59 PM EDT [facility] Basophils Relative 0.3 % LAB HEMETOLOGY METHOD 06/05/2025 1:59 PM [facility] Immature Granulocytes Relative 0.3 % LAB HEMETOLOGY METHOD 06/05/2025 1:59 PM [facility] Neutrophils Absolute 13.17(H) 1.50 - 7.00 K/mcL LAB HEMETOLOGY METHOD 06/05/2025 1:59 PM [facility] Lymphocytes Absolute 1.17 1.00 - 5.00 K/mcL LAB HEMETOLOGY METHOD 06/05/2025 1:59 PM [facility] Monocytes Absolute 0.41 0.20 - 1.00 K/mcL LAB HEMETOLOGY METHOD 06/05/2025 1:59 PM [facility] Eosinophils Absolute 0.01 0.00 - 0.50 K/mcL LAB HEMETOLOGY METHOD 06/05/2025 1:59 PM [facility] Basophils Absolute 0.05 0.00 - 0.20 K/mcL LAB HEMETOLOGY METHOD 06/05/2025 1:59 PM [facility] Immature Granulocytes Absolute 0.04(H) 0.00 - 0.03 K/mcL LAB HEMETOLOGY METHOD 06/05/2025 1:59 PM [facility] Blood Venous blood specimen / Unknown Venipuncture / Unknown 06/05/2025 1:22 PM EDT 06/05/2025 1:50 PM EDT Dwight Restrepo MD LAB BLOOD ORDERABLES Aminata l Result Performing Organization Address City/[facility]/ZIP Co de Phone Number [facility] [address] [place] [address], [place] [phone] * Lipase (06/05/2025 1:22 PM EDT) Pathologist [facility] Lipase 16 13 - 75 unit/L LAB CHEMISTRY METHOD 06/05/2025 3:00 PM EDT [facility] Blood Venous blood specimen / Unknown Venipuncture / Unknown 06/05/2025 1:22 PM EDT 06/05/2025 1:50 PM EDT Dwight Restrepo MD LAB BLOOD ORDERABLES Aminata l Result Performing Organization Address [facility]/ZIP Co de Phone Number [facility] [address] [place] [address], [place] [phone] * (ABNORMAL) Comprehensive Metabolic Panel (CMP) (06/05/2025 1:22 PM EDT) [facility] Sodium 138 133 - 145 mmol/L LAB CHEMISTRY METHOD 06/05/2025 3:03 PM EDT [facility] Potassium 3.8 3.5 - 5.5 mmol/L LAB CHEMISTRY METHOD 06/05/2025 3:03 PM EDT [facility] Chloride 104 96 - 110 mmol/L LAB CHEMISTRY METHOD 06/05/2025 3:03 PM [facility] CO2 20(L) 21 - 32 mmol/L LAB CHEMISTRY METHOD 06/05/2025 3:03 PM EDT [facility] Anion Gap 14(H) 3 - 11 LAB CHEMISTRY METHOD 06/05/2025 3:03 PM EDT [facility] Glucose 120(H) 70 - 100 mg/dL LAB CHEMISTRY METHOD 06/05/2025 3:03 PM [facility] BUN 10 5 - 25 mg/dL LAB CHEMISTRY METHOD 06/05/2025 3:03 PM [facility] Creatinine 0.78 0.50 - 1.10 mg/dL LAB CHEMISTRY METHOD 06/05/2025 3:03 PM [facility] eGFR 106 >=60 mL/min/1. 73m2 LAB CHEMISTRY METHOD 06/05/2025 3:03 PM [facility] Comment:Calculation based on the Chronic Kidney Disease Epidemiology Collaboration (CKD-EPI) equation refit without adjustment for race. BUN/Creatinine Ratio 12.8 LAB CHEMISTRY METHOD 06/05/2025 3:03 PM [facility] Calcium 9.9 8.5 - 10.5 mg/dL LAB CHEMISTRY METHOD 06/05/2025 3:03 PM [facility] AST (SGOT) 21 10 - 42 unit/L LAB CHEMISTRY METHOD 06/05/2025 3:03 PM [facility] ALT (SGPT) 27 10 - 60 unit/L LAB CHEMISTRY METHOD 06/05/2025 3:03 PM [facility] Alkaline Phosphatase 88 42 - 121 unit/L LAB CHEMISTRY METHOD 06/05/2025 3:03 PM [facility] Total Protein 7.8 6.0 - 8.0 g/dL LAB CHEMISTRY METHOD 06/05/2025 3:03 PM [facility] Albumin 4.6 3.2 - 5.0 g/dL LAB CHEMISTRY METHOD 06/05/2025 3:03 PM [facility] Total Bilirubin 0.6 0.0 - 1.4 mg/dL LAB CHEMISTRY METHOD 06/05/2025 3:03 PM [facility] Blood Venous blood specimen / Unknown Venipuncture / Unknown 06/05/2025 1:22 PM EDT 06/05/2025 1:50 PM EDT us Dwight Restrepo MD LAB BLOOD ORDERABLES Aminata gong Result [facility] [address] [place] [address], documented in this encounter Visit Diagnoses Diagnosis Viral gastroenteritis- Primary Intestinal infection due to other organism, NEC documented in this encounter Administered Medications Inactive Administered Medications - up to 3 most recent administrations Medication Order MAR Action Action Date Dose Rate Site dicyclomine (BENTYL) tablet 20 mg 20 mg, oral, Once, On Tue06/05/25 at 1833, For 1 dose Given 06/05/2025 7:03 PM EDT 20 mg iopamidoL (ISOVUE-370) 370 mg iodine /mL (76 %) injection 90 mL 90 mL, intravenous, Once in imaging, Starting on Tue06/05/25 at 1709, For 1 dose Given 06/05/2025 5:16 PM EDT 90 mL LORazepam (ATIVAN) injection 2 mg 2 mg, intravenous, Once, On Tue06/05/25 at 1325, For 1 dose, Prior to IV use, lorazepam injection should be DILUTED with an equal volume of compatible solution; Rate of administration should NOT exceed 2 mg/min. Given 06/05/2025 1:33 PM EDT 2 mg morphine injection 4 mg 4 mg, intravenous, Once, On Tue06/05/25 at 1512, For 1 dose Given 06/05/2025 3:23 PM EDT 4 mg prochlorperazine (COMPAZINE) injection 10 mg 10 mg, intravenous, Once, On Tue06/05/25 at 1311, For 1 dose Given 06/05/2025 1:27 PM EDT 10 mg sodium chloride 0.9 % bolus 1,000 mL 1,000 mL, intravenous, at 1,000 mL/hr, Administer over 1 Hours, Once, On Tue06/05/25 at 1311, For 1 dose New Bag 06/05/2025 1:29 PM EDT 1,000 mL 1000 mL/hr sodium chloride 0.9 % bolus 1,000 mL 1,000 mL, intravenous, at 1,000 mL/hr, Administer over 1 Hours, Once, On 9/24/25 at 1422, For 1 dose New Bag 06/05/2025 3:24 PM EDT 1,000 mL 1000 mL/hr sodium chloride 0.9 % flush 10 mL 10 mL, intravenous, Once, On Tue06/05/25 at 1710, For 1 dose Given 06/05/2025 5:16 PM EDT 10 mL documented in this encounter Active and Recently Administered Medications Times are shown in EDT. Scheduled Medication Order 06/03/2025 06/04/2025 06/05/2025 dicyclomine (BENTYL) tablet 20 mg (COMPLETED) 20 mg, oral, Once, On Tue06/05/25 at 1833, For 1 dose 1903 (Given - Provid er: Nikole Moya RN) iopamidoL (ISOVUE-370) 370 mg iodine /mL (76 %) injection 90 mL (COMPLETED) 90 mL, intravenous, Once in imaging, Starting on Tue06/05/25 at 1709, For 1 dose 1716 (Given - Provid er: Yesenia Espinoza) LORazepam (ATIVAN) injection 2 mg (COMPLETED) 2 mg, intravenous, Once, On Tue06/05/25 at 1325, For 1 dose, Prior to IV use, lorazepam injection should be DILUTED with an equal volume of compatible solution; Rate of administration should NOT exceed 2 mg/min. 1333 (Given - Provid er: Nikole Moya RN) morphine injection 4 mg (COMPLETED) 4 mg, intravenous, Once, On Tue06/05/25 at 1512, For 1 dose 1523 (Given - Provid er: Nikole Moya RN) prochlorperazine (COMPAZINE) injection 10 mg (COMPLETED) 10 mg, intravenous, Once, On Tue06/05/25 at 1311, For 1 dose 1327 (Given - Provid er: Nikole Moya RN) sodium chloride 0.9 % bolus 1,000 mL (COMPLETED) 1,000 mL, intravenous, at 1,000 mL/hr, Administer over 1 Hours, Once, On Tue06/05/25 at 1311, For 1 dose 1329 (New Bag - Prov ider: Nikole Moya RN)1606 (Stopped - Provider: Nikole Moya RN) sodium chloride 0.9 % bolus 1,000 mL (COMPLETED) 1,000 mL, intravenous, at 1,000 mL/hr, Administer over 1 Hours, Once, On Tue06/05/25 at 1422, For 1 dose 1524 (New Bag - Prov ider: Nikole Moya, RN)1628 (Stopped - Provider: Nikole Moya, BELKIS) sodium chloride 0.9 % flush 10 mL (COMPLETED) 10 mL, intravenous, Once, On Tue06/05/25 at 1710, For 1 dose 1716 (Given - Provid er: Yesenia Espinoza) documented in this encounter Orders Medications Ordered That Antony ht Not Have Been Administered Count Last Ordered Date First Ordered Date LORazepam (ATIVAN) injection 1 mg 1 025 IV Count Last Ordered Date First Orde red Date INSERT PERIPHERAL IV 1 06/05/2025 documented in this encounter Care Teams Brown Stock Washer Relationship Specialty Start Date End Date Carlos Madison MD [address] [facility] Enrollment [address] [place] [address] PCP - General Internal Medicine 06/05/25 documented as of this encounter
--- OUTSIDE RECORDS SUMMARY | 2025-06-06 07:08 | XMS_ITS | Encounter Summary ---
Author Organization [facility] Address [id number] [place] [id number] Care Team Providers Care Mold Shifter Name Role Phone Carlos Madison MD Primary Care Provider [phone] Reason for Visit * Reason Comments Vomiting Nausea and vomiting for weeks, now my stomach on fire, I have 3 bottles of Zofran and every time I come they always give me those but Zofran does not work at all . Was here last night too. Encounter Details Date Type Department Care Team (Late st Contact Info) Description 06/06/2025 7:08 AM EDT - 06/06/2025 10:42 AM EDT Emergency [facility] Emergency [address] [place] [address] Kale Reyes MD [address] [place] [address] Nausea and vomiting, unspecified vomiting type (Primary Dx) Discharge Disposition: Home or Self [...] Sign Reading Time Taken Comments Blood Pressure 126/91 06/06/2025 6:18 AM EDT Pulse 58 06/06/2025 6:18 AM EDT Temperature 36.9 C (98.4 F) 06/06/2025 6:18 AM EDT Respiratory Rate 18 06/06/2025 6:18 AM EDT Oxygen Saturation 99% 06/06/2025 6:18 AM EDT Inhaled Oxygen Concentration - - Weight 77.1 kg (170 lb) 06/06/2025 6:18 AM EDT Height 160 cm (5' 3 ) 06/06/2025 6:18 AM EDT Body Mass Index 30.11 06/06/2025 6:18 AM EDT documented in this encounter Discharge Instructions * Discharge Instructions* Kale Reyes MD - 06/06/2025 10:15 AM EDT 1. You were seen and reevaluated in the emergency department today for ongoing symptoms of nausea, vomiting, decreased oral intake, abdominal discomfort and concern for possible dehydration. 2. The evaluation in the emergency department today included repeat blood work. The blood work did not show any new, different, dangerous abnormalities. Your symptoms do not appear to be due to an immediately life-threatening dangerous process. No sign of a surgical abnormality. No bacterial infection that seems to need antibiotics. 3. In the emergency department today, you were given IV fluid for rehydration. You were given - an IV anti-inflammatory called Toradol, - an antacid medicine called famotidine/Pepcid - An antinausea medicine called droperidol. 4. At this time, given your improvement, it appears safe and appropriate to leave the emergency department and return home. 5. Pepcid/famotidine 20 mg tablets, are available [id number] without a prescription. These are a safe and effective medicine that can be used as needed, for any acid reflux/indigestion. - Pepcid/famotidine is available at most pharmacies, grocery stores, and department store such as [facility]. 6. For the next few days, focus on oral hydration. Water, fruit juice, sports drinks, popsicles, Tanzanian ice, Jell-O, chicken broth, is preferred. You can avoid solid foods for now. - As you start to feel better he can slowly and gradually introduce white rice, bananas, applesauce, toast, mashed potatoes, Posta without sauce, etc. 7. Please continue to watch and monitor your symptoms. We are always here in the emergency department to help. Please return for any new, different, dangerous, life-threatening, symptoms or conditions. Thank you. * Attachments The following attachments cannot be sent through Care Everywhere. * Nausea and Vomiting (Mauritian) * Full Liquid Diet: General Info (Mauritian) documented in this encounter Medications at Time [...] 06/05/2025 5 documented as of this encounter Discharge Disposition Disposition Code Departure Means Destination Comment s Home or Self Care documented in this encounter Progress Notes * Josefina Dubois RN - 06/06/2025 6:18 AM EDT Nausea and vomiting for weeks, now my stomach on fire, I have 3 bottles of Zofran and every time I come they always give me those but Zofran does not work at all . Was here last night too. * Kale Reyes MD - 06/06/2025 6:15 AM EDT HPI Chief Complaint Patient presents with Vomiting Nausea and vomiting for weeks, now my stomach on fire, I have 3 bottles of Zofran and every time I come they always give me those but Zofran does not work at all . Was here last night too. 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 Patient was seen here in this emergency department yesterday. She had blood work, CT of the abdomenand pelvis, and was treated with IV fluid and Zofran. Patient states she continues to feel unwell. CT yesterday identified some mild inflammation of the colon, inflammatory colitis, but no surgical abnormality, no clear definitive arterial infection. No indication for antibiotics at this time. Blood work showed a mild leukocytosis, but otherwise no significant dangerous metabolic abnormality. Very mild elevation in anion gap, and low bicarb, but otherwise patient was hemodynamically stable, and seem to improve with IV hydration. hCG was negative. LFTs yesterday were normal. No anemia. Patient is a daily marijuana smoker. She is aware of the diagnosis of cannabis hyperemesis syndrome(CHS). No fevers, no chills, no cough. Patient states he feels a burning sensation going from her belly up through the center of her chest. Patient states acid suppression medicine was not discussed. Patient is not taking anything for acid suppression. Patient has history of seizure disorder, she states she has not had a seizure for some time and she is not currently on any antiseizure medicines. Patient is on Prozac. No reported drugallergies. [place] Coma Scale Score: 15 Patient History Past Medical History: Diagnosis Date Anxiety state DX:Anxiety state Asthma DX:Asthma Epilepsy ([facility] V24, [facility] V28) DX:Epilepsy ([facility]); COMMENT: has not had seizure since age 13, no medications at this time Past Surgical History: Procedure Laterality Date SECTION PROCEDURE: HISTORICAL No family history on file. Social History Tobacco Use Smoking status: Never Smokeless tobacco: Never Substance Use Topics Alcohol use: Never Drug use: Yes Types: Marijuana/Cannabis Review of Systems Review of Systems 10+ systems were discussed and reviewed. Please see HPI above. Physical Exam ED Triage Vitals [06/06/25 0618] Temp Heart Rate Resp BP 36.9 ??C (98.4 ??F) 58 18 (!) 126/91 SpO2 Temp Source Heart Rate Source Patient Position 99 % Oral -- Sitting BP Location FiO2 (%) Left arm -- Physical Exam Patient is awake, alert, walking around the examination room, not acutely toxic no distress. Extraocular eye movements are intact. Anicteric sclera. No conjunctival crusting or discharge. Normocephalic, atraumatic, normal range of motion of the neck, no meningismus. Face is symmetric. Airways patent. No stridor. No trismus. Normal breathing, normal speech, no tachypnea, no hypoxemia, no increased work of breathing Normal pulses, normal perfusion, no tachycardia. Tenderness to predominantly bilateral lower abdomen, soft, nondistended. GCS is 15. Strength, sensation, gait and coordination is intact. No focal neurodeficit noted. Patient has full range of motion of all joints and extremities. No deformity. Visualized skin is warm dry and intact. No pallor. No jaundice. No diaphoresis Patient is awake and alert, cooperative, ED Course & MDM EKG: Sinus rhythm, with a ventricular rate of [address] elevation. No depressions. No ectopy. No dysrhythmia. There are T wave inversions noted in limb lead III. Flattening in aVF. Some nonspecific ST-T wave changes in V2 V3. Today's EKG is compared to that from April 28, 2014. At that time, the rate was faster at 85 bpm compared to [address]-T wave changes were seen previously. Overall, change in rate is the most significant change. EKGs independently viewed and interpreted by me, ED attending. DDx: Gastroenteritis, versus foodborne toxin, versus gastroparesis, versus cannabis hyperemesis syndrome, versus acid reflux, versus gastritis, versus peptic ulcer disease Clinical Impressions as of 06/07/25 0754 Nausea and vomiting, unspecified vomiting type Medical Decision Making MDM: 29-year-old female, presents to the ED for persistent symptoms of nausea, vomiting, decreased oral intake, loss of appetite and concern about dehydration. Patient not having black or bloody stool. She does have some lower abdominal discomfort and cramping, but no persistent diarrhea. Patient is aware of the presumptive diagnosis of cannabis hyperemesis syndrome. Patient however seems somewhat suspicious that there may be something else going on. We reviewed the CT scan from yesterday. No evidence of a dangerous surgical or bacterial infectious process at this time. Today will be supportive, patient has not had a discussion according to her about acid suppression medicines. The se can be considered and added today. Will obtain an EKG to look for QTc intervals, droperidol will be considered. In the emergency department, the patient responded very well to lactated Ringer's, Pepcid, Toradol,and specifically droperidol. She has markedly improved, nausea is resolved, pain is resolved, tolerating oral hydration. Lengthy bedside discussion about the emergency department visits, and the hope and expectation thatthings will continue to slowly and gradually improve. Hydration strategies were reviewed. Please see discharge instructions below. Reasons to return were discussed and reviewed. Patient leaves the [facility] stable and improved condition. Procedures Final diagnoses: [R11.2] Nausea and vomiting, unspecified vomiting type 1. You were seen and reevaluated in the emergency department today for ongoing symptoms of nausea, vomiting, decreased oral intake, abdominal discomfort and concern for possible dehydration. 2. The evaluation in the emergency department today included repeat blood work. The blood work did not show any new, different, dangerous abnormalities. Your symptoms do not appear to be due to an immediately life-threatening dangerous process. No sign of a surgical abnormality. No bacterial infection that seems to need antibiotics. 3. In the emergency department today, you were given IV fluid for rehydration. You were given - an IV anti-inflammatory called Toradol, - an antacid medicine called famotidine/Pepcid - An antinausea medicine called droperidol. 4. At this time, given your improvement, it appears safe and appropriate to leave the emergency department and return home. 5. Pepcid/famotidine 20 mg tablets, are available [id number] without a prescription. These are a safe and effective medicine that can be used as needed, for any acid reflux/indigestion. - Pepcid/famotidine is available at most pharmacies, grocery stores, and department store such as [facility]. 6. For the next few days, focus on oral hydration. Water, fruit juice, sports drinks, popsicles, [place] ice, Jell-O, chicken broth, is preferred. You can avoid solid foods for now. - As you start to feel better he can slowly and gradually introduce white rice, bananas, applesauce, toast, mashed potatoes, Posta without sauce, etc. 7. Please continue to watch and monitor your symptoms. We are always here in the emergency department to help. Please return for any new, different, dangerous, life-threatening, symptoms or conditions. Thank you. Kale Reyes MD 06/06/25 0817 Kale Reyes MD 06/06/25 0928 Kale Reyes MD 06/06/25 1017 Kale Reyes MD 06/07/25 0754 documented in this encounter Plan of Treatment Not on file documented as of this encounter Procedures Procedure Name Priority Date/Time Associated Diagnosis Comments ECG 12-LEAD STAT 06/06/2025 8:24 AM EDT documented in this encounter Results * ECG 12 lead (06/06/2025 8:24 AM EDT) Ventricular Rate ECG 49 BPM GEMUSE Atrial Rate 49 BPM GEMUSE P-R Interval 150 ms GEMUSE QRS Duration 90 ms GEMUSE Q-T Interval 468 ms GEMUSE QTc 422 ms GEMUSE P Wave [place] 56 degrees GEMUSE R [place] 15 degrees GEMUSE T [place] 7 degrees GEMUSE ECG Interpretation Sinus bradycardia Otherwise normal ECG When compared with ECG of 28-APR-2014 00:02, Vent. rate has decreased BY [address] no longer depressed in Inferior leads Confirmed by Tanmay RODRIGUEZ JOHN ([id number]) on 06/06/2025 1:16:55 PM GEMUSE 06/06/2025 8:24 AM EDT 06/06/2025 1:16 PM EDT us Kale Reyes MD ECG ORDERABLES Final Result GEMUSE documented in this encounter Visit Diagnoses Diagnosis Nausea and vomiting, unspecified vomiting type- Primary documented in this encounter Administered Medications Inactive Administered Medications - up to 3 most recent administrations Medication Order MAR Action Action Date Dose Rate Site droPERidol (INAPSINE) injection 1.25 mg 1.25 mg, intravenous, Once, On [facility] 06/06/25 at 0836, For 1 dose, Emergency Departments, Operating areas, and Post-operative areas (one time doses) for patients who FAIL TO SHOW ADEQUATE RESPONSE to other treatments: -For doses GREATER than OR equal to 2.5 mg, ECG monitoring should be performed prior to treatment and continued for 2 to 3 hours after completing treatment -For doses LESS than 2.5 mg, ECG monitoring is NOT required Head Pain units if other agents are unsuccessful (MAX of 2.5 mg three times daily): -Monitor ECG at baseline and daily while on regimen, Has the patient failed to show an adequate response to other treatments? (See order restrictions above): Yes, Is a droperidol dose GREATER than OR equal to 2.5 mg being ordered? No Given 06/06/2025 8:44 AM EDT 1.25 mg famotidine (PF) (PEPCID) injection 20 mg 20 mg, intravenous, Administer over 2 Minutes, Once, On [facility] 06/06/25 at 0811, For 1 dose Given 06/06/2025 8:43 AM EDT 20 mg ketorolac (TORADOL) injection 15 mg 15 mg, intravenous, Once, On [facility] 06/06/25 at 0810, For 1 dose Given 06/06/2025 8:39 AM EDT 15 mg lactated Ringer's bolus 1,000 mL 1,000 mL, intravenous, at 1,000 mL/hr, Administer over 1 Hours, Once, On [facility] 06/06/25 at 0810, For 1 dose New Bag 06/06/2025 8:38 AM EDT 1,000 mL 1000 mL/hr documented in this encounter Active and Recently Administered Medications Times are shown in EDT. Scheduled Medication Order 06/04/2025 06/05/2025 06/06/2025 droPERidol (INAPSINE) injection 1.25 mg (COMPLETED) 1.25 mg, intravenous, Once, On [facility] 06/06/25 at 0836, For 1 dose, Emergency Departments, Operating areas, and Post-operative areas (one time doses) for patients who FAIL TO SHOW ADEQUATE RESPONSE to other treatments: -For doses GREATER than OR equal to 2.5 mg, ECG monitoring should be performed prior to treatment and continued for 2 to 3 hours after completing treatment -For doses LESS than 2.5 mg, ECG monitoring is NOT required Head Pain units if other agents are unsuccessful (MAX of 2.5 mg three times daily): -Monitor ECG at baseline and daily while on regimen, Has the patient failed to show an adequate response to other treatments? (See order restrictions above): Yes, Is a droperidol dose GREATER than OR equal to 2.5 mg being ordered? No 0844 (Given - Provid er: Freddy Tirado RN) famotidine (PF) (PEPCID) injection 20 mg (COMPLETED) 20 mg, intravenous, Administer over 2 Minutes, Once, On [facility] 06/06/25 at 0811, For 1 dose 0843 (Given - Provid er: Freddy Tirado RN) ketorolac (TORADOL) injection 15 mg (COMPLETED) 15 mg, intravenous, Once, On [facility] 06/06/25 at 0810, For 1 dose 0839 (Given - Provid er: Freddy Tirado RN) lactated Ringer's bolus 1,000 mL (COMPLETED) 1,000 mL, intravenous, at 1,000 mL/hr, Administer over 1 Hours, Once, On [facility] 06/06/25 at 0810, For 1 dose 0838 (New Bag - Prov ider: Freddy Tirado RN)1005 (Stopped - Provider: Freddy Tirado RN) documented in this encounter Care Teams Mold Shifter Relationship Specialty Start Date End Date Carlos Madison MD [address] [facility] Enrollment [address] [place] [address] PCP - General Internal Medicine 06/05/25 documented as of this encounter
[2025-06-08 11:12] VITALS: BP 150/65; PULSE 73; RESP 16; TEMP 36.8; O2SAT 96; BMI 35.2
--- NOTE | 2025-06-08 11:13 | ED.GENADULT ---
HPI - General Adult General Chief complaint: Abdominal Pain Stated complaint: r side abd pain Time Seen by Provider: 06/08/25 12:47 Source: patient, RN notes reviewed and old records reviewed Mode of arrival: ambulatory Limitations: no limitations History of Present Illness ED Provider: MORENA Zelaya HPI narrative: 29-year-old female without significant medical history presents to the ED due to 4 days of diffuse abdominal pain, nausea and vomiting. Patient states she woke up 4 days ago with a sharp pain in the right lower quadrant of her abdomen with nausea and vomiting that has been intermittent. Patient states only relieving factors are hot showers, when she gets out of the shower her pain and symptoms return. Patient was seen at [facility] 2 days ago and had a CT abdomen and pelvis done which revealed inflammation and patient states she was discharged home with omeprazole, Zofran, and Reglan. Patient states she woke up this morning and noticed abdominal pain in the same area and had an episode of vomiting this morning. Patient states she smokes marijuana but has not smoked in the last 2 weeks. Patient states last menstrual period was 05/25/2025. Patient states she is unsure when her last bowel movement was. MD complaint: abd pain, nausea, vomiting Related Data Previous Rx's ?Medication ?Instructions ?Recorded cyclobenzaprine 10 mg tablet 10 mg PO TID PRN muscle spasm #14 04/19/23 tabs lidocaine 4 % topical patch 1 patch topical DAILY PRN pain #10 04/19/23 ea ibuprofen 600 mg tablet 600 mg PO Q6H PRN fever or pain 06/16/23 #30 tabs oseltamivir 75 mg capsule (Tamiflu) 75 mg PO BID 5 days #10 caps 11/27/23 phenol 1.5 %-glycerin 33 % mucosal 1 spray mucous membrane Q6-8H PRN 11/27/23 spray (Chloraseptic Max Sore sore throat #118 mL Throat) acetaminophen 500 mg tablet 1,000 mg (2 x 500 mg) PO Q6H PRN 08/11/24 (Tylenol Extra Strength) fever or pain #20 tabs bacitracin 500 unit/gram topical 1 appl topical BID 7 days #28 grams 08/11/24 ointment ibuprofen 400 mg tablet 400 mg PO TID PRN fever or pain 08/11/24 #30 tabs amoxicillin 500 mg-potassium 1 tab PO TID 7 days #21 tabs 08/26/24 clavulanate 125 mg tablet (Augmentin) ondansetron HCl 4 mg tablet 4 mg PO Q8H PRN nausea and 08/26/24 vomiting #14 tabs prednisone 50 mg tablet 50 mg PO DAILY #5 tabs 08/26/24 cyclobenzaprine 10 mg tablet 10 mg PO TID PRN muscle spasm #20 08/30/24 tabs lidocaine 5 % topical patch 1 patch topical DAILY #30 ea 08/30/24 oxycodone 5 mg tablet 5 mg PO Q8H PRN pain #3 tabs 09/08/24 cefuroxime axetil 250 mg tablet 250 mg PO BID 7 days #14 tabs 10/04/24 ondansetron 4 mg disintegrating 4 mg PO Q8H 3 days #9 tabs 10/04/24 tablet Allergies Allergy/AdvReac Type Severity Reaction Status Date / Time No Known Allergies (No Known Allergy Verified 06/08/25 11:12 Allergies*) Review of Systems Review of Systems: CONST: Negative for fever, body aches and chills. HENT: Negative for neck pain/stiffness, headache, congestion, sore throat, swelling. EYES: Negative for discharge/pain or vision changes. RESP: Negative for cough/hemoptysis and shortness of breath. CV: Negative chest pain, difficulty breathing, palpitations. ABD: POS pain, nausea, vomiting. : Negative increase frequency, dysuria, blood in urine or stool. MUSC: Negative for muscle aches, edema. SKIN: Negative rash, lesions/sores. NEURO: Negative headache, dizziness, weakness. Yes all other systems are reviewed and are negative [facility] Past Medical History Attestation statement: The following information was validated with the patient. Source: old records reviewed and nursing notes reviewed Medical History Asthma Epilepsy Social History Social History Alcohol intake: current Alcohol intake frequency: a few times a week Alcohol type: wine Patient Tobacco Use Status: Never used Tobacco Substance Use Type: Marijuana Advance Directives: No Advance Directives Information Provided: No Physical Exam ED Vital Signs: Vital Signs - 24 hr 06/08/25 11:12 06/08/25 12:39 06/08/25 14:00 Temperature 98.2 F 98.1 F 98.2 F Pulse Rate 73 59 65 Respiratory Rate 16 17 16 Blood Pressure 150/65 H 133/68 145/79 H Pulse Oximetry 96 98 97 Oxygen Delivery Method Room Air Room Air Room Air BMI result Body Mass Index 35.2 GENERAL APPEARANCE: ?AxOx4, no acute distress. HEENT: ?NC, AT. MMM. EOMI, clear conjunctiva, oropharynx clear. NECK: ?Supple without lymphadenopathy.? No stiffness or restricted ROM. HEART:? Normal rate and regular rhythm, normal S1/S2, no m/r/g LUNGS:? CTAB, moving air well. No crackles or wheezes are heard. ABDOMEN: ?Soft, nondistended, no rigidity, no guarding, negative Bangura's sign, no rebound tenderness, very mild diffuse tenderness throughout the abdomen, normoactive bowel sounds throughout all 4 quadrants, no overlying skin changes or rashes noted BACK: No CVAT, no obvious deformity. EXTREMITIES: ?Without cyanosis, clubbing or edema. NEUROLOGICAL: ?Grossly nonfocal. Alert and oriented, moving all 4 extremities. Observed to ambulate with normal gait. Skin: ?Warm and dry without any rash. Course Course Course Narrative: This is a rapid medical exam performed by Marcelo Capps NP: Additional HPI, ROS, PE not included below will be deferred to primary provider. Patient is a 29y/o F presenting with 2 weeks of RLQ abd pain, nausea and vomiting. Seen at [facility], had CT, d/c'd home with pain and nausea meds which are not helping. Plan: labs, UA Medications Administered Discontinued Medications Generic Name Dose Route Start Last Admin Trade Name Freq PRN Reason Stop Dose Admin Droperidol 1.25 mg 06/08/25 13:37 06/08/25 13:47 Droperidol 5 Mg/2 Ml Vial IVPUSH 06/08/25 13:38 1.25 mg ONCE ONE Administration Lactated Ringer's 1,000 mls @ 999 mls/hr 06/08/25 13:37 06/08/25 13:46 Lr IV 06/08/25 14:37 999 mls/hr .Q1H1M ONE Administration Medical Decision Making Medical Decision Making MDM Narrative: 9-year-old female without significant medical history presents to the ED due to 4 days of diffuse abdominal pain, nausea and vomiting. Patient states she woke up 4 days ago with a sharp pain in the right lower quadrant of her abdomen with nausea and vomiting that has been intermittent. Patient states only relieving factors are hot showers, when she gets out of the shower her pain and symptoms return. Patient was seen at [facility] 2 days ago and had a CT abdomen and pelvis done which revealed inflammation and patient states she was discharged home with omeprazole, Zofran, and Reglan. Patient states she woke up this morning and noticed abdominal pain in the same area and had an episode of vomiting this morning. Patient states she smokes marijuana but has not smoked in the last 2 weeks. Patient states last menstrual period was 05/25/2025. Patient states she is unsure when her last bowel movement was. Labs revealed leukocytosis of 14.4, H&H stable, total bilirubin WNL, lipase WNL, inflammatory markers WNL, beta hCG negative, no electrolyte abnormality. UA negative for blood or infection. Patient afebrile, with no significant abdominal tenderness, negative Bangura's sign, negative rebound tenderness. Patient medicated with IV fluids, 1.25 mg IV droperidol with significant relief of symptoms. Patient with recent CT abdomen and pelvis without emergent findings, no significant elevation in bilirubin or lipase, afebrile no indication for advanced imaging. At this time I believe patient experiencing cannabis hyperemesis syndrome. I counseled patient on the pathophysiology of the syndrome and encouraged her to quit smoking marijuana and may take up to 4 weeks until THC is totally out of her system for resolution of symptoms. I counseled patient to follow up with her primary care doctor to ensure resolution of symptoms. I counseled patient on strict return precautions. Patient is in agreement with the plan. Differential Diagnosis Differential Diagnoses: The differential diagnosis associated with the presentation includes Acute abdomen Gastritis Viral illness Cannabis hyperemesis syndrome Cyclical vomiting Admission/Observation Consideration of admission/observation: Escalation of care including admission/observation considered Lab Data [facility] Lab Attestation statement: I reviewed the patient's lab results. 06/08/25 11:37 06/08/25 11:37 Labs: Lab Results 06/08/25 06/08/25 Range/Units 11:37 14:22 WBC 14.4 H (4.8-10.8) X10*3/uL RBC 4.88 (4.20-5.50) X10*6/uL Hgb 14.0 (12.0-16.0) g/dl Hct 40.3 (37.0-47.0) % MCV 82.6 (80.0-98.0) fL MCH 28.7 (27.0-33.0) pg MCHC 34.7 (31.0-35.0) g/dl RDW 12.8 (11.0-16.0) % Plt Count 278 (160-400) X10*3/uL MPV 10.9 (9.4-12.3) fL Immature Gran % (Auto) 0.6 H (0.0-0.4) % Neut % (Auto) 79.7 H (45-73) % Lymph % (Auto) 13.0 L (20-40) % [place] % (Auto) 6.0 (2-11) % Eos % (Auto) 0.3 (0-4) % Baso % (Auto) 0.4 (0-2) % Lymph # (Auto) 1.9 (1.2-4.9) X10*3/uL [place] # (Auto) 0.9 (0.1-1.2) X10*3/uL Eos # (Auto) 0.0 (0.0-0.4) X10*3/uL Baso # (Auto) 0.1 (0.0-0.2) X10*3/uL Abs Immat Gran (auto) 0.09 H (0.00-0.03) X10*3/uL Absolute Neuts (auto) 11.5 H (2.0-8.3) x10*3/uL Absolute Nucleated RBC 0.000 (0.0-0.012) X10*3/uL Nucleated RBC % (auto) 0.0 (0.0-0.2) /100WBC Sodium 138 (135-145) mmol/L Potassium 3.3 (3.3-5.1) mmol/L Chloride 102 (96-108) mmol/L Carbon Dioxide 26 (22-29) mmol/L Anion Gap 13 (12-20) BUN 7 L (9-16) mg/dL Creatinine 0.73 (0.5-1.4) mg/dL Estim Creat Clear Calc 125.6 Estimated GFR > 60 Random Glucose 114 (60-115) mg/dL Calcium 8.9 D (8.4-10.2) mg/dL Total Bilirubin 0.7 (0.0-1.0) mg/dL AST 24 (5-31) U/L ALT 21 (0-31) U/L Alkaline Phosphatase 71 (39-117) U/L C-Reactive Protein 0.16 (< or = 0.50) mg/dL Total Protein 7.1 (6.5-8.0) g/dL Albumin 4.7 (3.5-5.0) g/dL Lipase 15 (8-78) U/L Beta HCG, Quant < 2 mIU/mL Urine Color DK YELLOW Urine Appearance Clear Urine pH 6.5 (5.0-9.0) Ur Specific [place] 1.025 (1.005-1.025) Urine Protein 30 (1+) H (Neg-Trace) mg/dL Urine Glucose (UA) Negative (Negative) mg/dL Urine Ketones 15 (Negative) mg/dL Urine Blood Negative (Negative) Urine Nitrite Negative (Negative) Ur Leukocyte Esterase Negative (Negative) Urine RBC 0-2 (0-2) /HPF Urine WBC 0-5 (0-5) /HPF Ur Squamous Epith Cells 3-5 (0-2) /HPF Urine Bacteria None Seen (None Seen) Hyaline Casts 0-2 (0-2) /LPF External Record Review External record reviewed: Inpatient record, Office record and Outpatient record Chronic Conditions Patient?s care impacted by: Other (No known medical history) Discharge Plan Discharge Clinical Impression: Cannabis hyperemesis syndrome concurrent with and due to cannabis dependence Patient Disposition: Home, Self-Care Instructions: Cannabis Use Disorder (ED) Additional Instructions: You were evaluated in the ED today due to abdominal pain, nausea and vomiting. Your lab work revealed a mild increase in your white blood cell count of 14.4 however this is most likely due to vomiting. No evidence of anemia, negative inflammatory markers, no electrolyte abnormality. Your urine was negative for blood or infection. Your test was negative. Your symptoms significantly improved after IV fluids, and IV droperidol. You stated your symptoms improved after taking a hot shower. These findings highly suggest cannabis hyperemesis syndrome. I recommend you quit smoking cannabis as this will continue your symptoms. Please continue adequate hydration with sports drinks like Gatorade, Powerade, Pedialyte. Additionally, you stated you have been constipated, to treat this mix 1 packet of MiraLax in 8 oz of water daily until you began to have soft bowel movements. Please follow up with your primary care provider to ensure resolution of symptoms. Please return to the emergency department if you experience fevers over 100.4?, worsening abdominal pain, worsening nausea, worsening vomiting, blood in the vomit, or any new/worsening/concerning symptoms. Prescriptions: No Action cyclobenzaprine 10 mg tablet 10 mg PO TID PRN (Reason: muscle spasm) Qty: 14 0RF lidocaine 4 % adhesive patch,medicated 1 patch topical DAILY PRN (Reason: pain) Qty: 10 0RF Rx Instructions: may leave on for up to 12 hrs ibuprofen 600 mg tablet 600 mg PO Q6H PRN (Reason: fever or pain) Qty: 30 0RF amoxicillin-pot clavulanate [Augmentin] 500-125 mg tablet 1 tab PO TID 7 Days Qty: 21 0RF prednisone 50 mg tablet 50 mg PO DAILY Qty: 5 0RF ondansetron HCl 4 mg tablet 4 mg PO Q8H PRN (Reason: nausea and vomiting) Qty: 14 0RF oxycodone 5 mg tablet 5 mg PO Q8H PRN (Reason: pain) Qty: 3 0RF Rx Instructions: Partial Fill upon patient request. cefuroxime axetil 250 mg tablet 250 mg PO BID 7 Days Qty: 14 0RF ondansetron 4 mg tablet,disintegrating 4 mg PO Q8H 3 Days Qty: 9 0RF Chloraseptic Max Sore Throat 1.5-33 % spray,non-aerosol 1 spray mucous membrane Q6-8H PRN (Reason: sore throat) Qty: 118 0RF Rx Instructions: leave on area for 15 seconds then spit out oseltamivir [Tamiflu] 75 mg capsule 75 mg PO BID 5 Days Qty: 10 0RF bacitracin 500 unit/gram ointment 1 appl topical BID 7 Days Qty: 28 0RF acetaminophen [Tylenol Extra Strength] 500 mg tablet 1,000 mg PO Q6H PRN (Reason: fever or pain) Qty: 20 0RF ibuprofen 400 mg tablet 400 mg PO TID PRN (Reason: fever or pain) Qty: 30 0RF cyclobenzaprine 10 mg tablet 10 mg PO TID PRN (Reason: muscle spasm) Qty: 20 0RF lidocaine 5 % adhesive patch,medicated 1 patch topical DAILY Qty: 30 0RF Rx Instructions: leave on most painful area for up to 12 hrs Print Language: Arabic
[2025-06-08 11:43] LABS: Hematocrit 40.3 % (37.0-47.0); Hemoglobin 14.0 g/dl (12.0-16.0); Imm Gran Abs Auto 0.09 X10*3/uL (0.00-0.03); Imm Gran Pct Auto 0.6 % (0.0-0.4); Lymphocytes Absolute Auto 1.9 X10*3/uL (1.2-4.9); MANUAL DIFF FLAG NO; Mean Corpuscular HGB Conc 34.7 g/dl (31.0-35.0); Mean Corpuscular Hemoglobin 28.7 pg (27.0-33.0); Mean Corpuscular Volume 82.6 fL (80.0-98.0); NRBC Abs Auto 0.000 X10*3/uL (0.0-0.012); NRBC Pct Auto 0.0 /100WBC (0.0-0.2); Platelet Count 278 X10*3/uL (160-400); Red Blood Count 4.88 X10*6/uL (4.20-5.50); White Blood Count 14.4 X10*3/uL (4.8-10.8)
[2025-06-08 11:44] LABS: Appearance Urine Clear; Glucose Urine UA Negative (Negative); PH 6.5 (5.0-9.0); Specific Gravity - Urine 1.025 (1.005-1.025); UMIC TRIGGER UACC YES
[2025-06-08 12:10] LABS: Alanine Aminotransferase 21 U/L (0-31); Albumin Level 4.7 g/dL (3.5-5.0); Alkaline Phosphatase 71 U/L (39-117); Anion Gap 13 (12-20); Aspartate Amino Transferase 24 U/L (5-31); Blood Urea Nitrogen 7 mg/dL (9-16); Calcium 8.9 mg/dL (8.4-10.2); Carbon Dioxide 26 mmol/L (22-29); Chloride 102 mmol/L (96-108); Creatinine Clr Calc Pharmacy 125.6; Estimated Glomerular Filt Rate > 60; Potassium 3.3 mmol/L (3.3-5.1); Sodium 138 mmol/L (135-145); Total Protein 7.1 g/dL (6.5-8.0)
[2025-06-08 12:39] VITALS: BP 133/68; PULSE 59; RESP 17; TEMP 36.7; O2SAT 98
--- OUTSIDE RECORDS SUMMARY | 2025-06-08 12:54 | XMS_ITS | Clinical Summary ---
Author Organization [facility] Address [address] [place] [address] Phone Care Team Providers Care Machine Stuffer Automatic Name Role Phone Carlos Madison MD Primary Care Provider [phone] Allergies No known active allergies Medications ondansetron ODT (ZOFRAN-ODT) 4 mg disintegrating tablet Let 1 tablet dissolve under the tongue three times daily as needed for nausea or vomiting. 10 tablet 06/12/20 25 Active dicyclomine (BENTYL) 20 mg tablet Take 1 tablet (20 mg total) by mouth 4 (four) times a day if needed (abdominal discomfort) for up to 10 days. 20 tablet 5 06/15/20 25 Active Encounters Date Type Department Care Team Description 06/06/2025 7:08 AM EDT - 06/06/2025 10:42 AM EDT Emergency [facility] Emergency [address] [place] [phone] Kale Reyes MD Nausea and vomiting, unspecified vomiting type (Primary Dx) Discharge Disposition: Home or Self Care 06/05/2025 1:02 PM EDT - 06/05/2025 7:20 PM EDT Emergency [facility] Emergency [address] [place] [phone] Dwight Restrepo MD Viral gastroenteritis (Primary Dx) Discharge Disposition: Home or Self Care from Last 3 Months Surgical History Surgery Date Site/Laterality Comments SECTION PROCEDURE: HISTORICAL Medical History Medical History Date Comments Anxiety state DX:Anxiety state Asthma DX:Asthma Epilepsy (CMS/HCC V24, CMS/HCC V28) DX:Epilepsy (HCC); COMMENT: has not had seizure since age [...] Sexual Orientation Not on file Obstetrics History Last Filed Vital Signs Vital Sign Reading [...] Mass Index 30.11 06/06/2025 6:18 AM EDT Plan of Treatment Health Maintenance Due Date Last Done Comments HPV Vaccines (2 - 3-dose series) 12/03/2013 11/05/2013, 11/05/2013 Hepatitis A Vaccines (1 of 2 - Risk 2-dose series) 2014 Cervical Cancer Screening: Pap Smear 2016 Depression Screening 09/12/2024 Influenza Vaccine (#1) 2025 , 08/26/2023, 08/28/2022, Additional history exists Cholesterol Screening (Lipid Panel) 06/05/2025 HIV Screening 06/05/2025 Hepatitis C Screening 06/05/2025 Social Influencers of Health Screening 06/05/2025 DTaP,Tdap,and Td Vaccines (10 - Td or Tdap) 01/08/2035 01/08/2025, 08/11/2024, 06/19/2014, Additional history exists RSV Immunization Adult Patients (1 - 1-dose 75+ series) 2070 Hepatitis B Vaccines Completed 07/24/1996, 1995, 1995 HIB Vaccines Completed 11/04/1997, 02/1996, 02/08/1996, Additional history exists IPV Vaccines Completed 05/18/2001, 02/1996, 02/08/1996, Additional history exists MMR Vaccines Completed 05/18/2001, 11/04/1997 Varicella Vaccines Completed 12/24/2008, 12/21/1996 Meningococcal ACWY Vaccine Completed 08/24, 08/24/2012, 12/24/2008 Pneumococcal Vaccine: Pediatrics (0 to 5 Years) and At-Risk Patients (6 to 49 Years) Aged Out 06/13/2017 No longer eligible based on patient's age to complete this topic COVID-19 Vaccine Completed 08/28/2024, , 07/09/2021, Additional history exists Meningococcal B Vaccine Aged Out No l onger eligible based on patient's age to complete this topic RSV Immunization Patients Under 20 months Aged Out No longer eligible based on patient's age to complete this topic Procedures Procedure Name Priority Date/Time Associated Diagnosis Comments ECG 12-LEAD STAT 06/06/2025 8:[address] ABDOMEN PELVIS W CONTRAST STAT 06/05/2025 5:23 PM EDT HCG, SERUM, QUALITATIVE STAT Add-on 06/05/2025 1:22 PM EDT CBC WITH AUTO DIFFERENTIAL STAT 06/05/2025 1:22 PM EDT CBC AND DIFFERENTIAL STAT 06/05/2025 1:22 PM EDT LIPASE STAT 06/05/2025 1:22 PM EDT COMPREHENSIVE METABOLIC PANEL STAT 06/05/2025 1:22 PM EDT from Last 3 Months Results * ECG 12 lead (06/06/2025 8:24 AM EDT) Ventricular Rate ECG 49 BPM GEMUSE Atrial Rate 49 BPM GEMUSE P-R Interval 150 ms GEMUSE QRS Duration 90 ms GEMUSE Q-T Interval 468 ms GEMUSE QTc 422 ms GEMUSE P Wave [place] 56 degrees GEMUSE R [place] 15 degrees GEMUSE T [place] 7 degrees GEMUSE ECG Interpretation Sinus bradycardia Otherwise normal ECG When compared with ECG of 28-APR-2014 00:02, Vent. rate has decreased BY [address] no longer depressed in Inferior leads Confirmed by Tanmay RODRIGUEZ JOHN ([id number]) on 06/06/2025 1:16:55 PM GEMUSE 06/06/2025 8:24 AM EDT 06/06/2025 1:16 PM EDT us Kale Reyes MD ECG ORDERABLES Final Result GEMUSE * CT Abdomen Pelvis w Contrast (06/05/2025 [...] IMG CT PROCEDURES Final R esult * (ABNORMAL) CBC auto differential (06/05/2025 1:22 PM EDT) WBC 14.9(H) 4.8 - 10.8 K/mcL LAB [facility]OLOG[facility] RBC 5.20(H) 3.80 - 4.80 M/mcL LAB HEMETOLOGY METHOD 06/05/2025 1:59 PM EDT [facility] Hemoglobin 14.8 11.5 - 16.0 g/dL LAB HEMETOLOGY METHOD 06/05/2025 1:59 PM EDT [facility] Hematocrit 42.6 35.0 - 47.0 % LAB HEMETOLOGY METHOD 06/05/2025 1:59 PM EDT [facility] MCV 81.9 79.0 - 98.0 FL LAB HEMETOLOGY METHOD 06/05[facility]2025 [facility] MCH 28.5 27.0 - 32.0 pcg LAB HEMETOLOGY METHOD 06/05/2025 1:59 PM [facility] MCHC 34.7 32.0 - 37.0 g/dL LAB HEMETOLOGY METHOD 06/05/2025 1:59 PM [facility] RDW 12.6 11.0 - 15.0 % LAB HEMETOLOGY METHOD 06/05/2025 1:59 PM [facility] Platelets 316 130 - 400 K/mcL LAB HEMETOLOGY METHOD 06/05/2025 1:59 PM [facility] MPV 11.6(H) 7.0 - 11.0 FL LAB HEMETOLOGY METHOD 06/05/2025 1:59 PM [facility] NRBC 0.0 <1.0 % LAB HEMETOLOGY METHOD 06/05/2025 1:59 PM [facility] NRBC Absolute 0.00 <0.10 K/mcL LAB HEMETOLOGY METHOD 06/05/2025 1:59 PM [facility] Neutrophils Relative 88.6 % LAB HEMETOLOGY METHOD 06/05/2025 1:59 PM [facility] Lymphocytes Relative 7.9 % LAB HEMETOLOGY METHOD 06/05/2025 1:59 PM [facility] Monocytes Relative 2.8 % LAB HEMETOLOGY METHOD 06/05/2025 1:59 PM [facility] Eosinophils Relative 0.1 % LAB HEMETOLOGY METHOD 06/05/2025 1:59 PM [facility] Basophils Relative 0.3 % LAB HEMETOLOGY METHOD 06/05/2025 1:59 PM [facility] Immature Granulocytes Relative 0.3 % LAB HEMETOLOGY METHOD 06/05/2025 1:59 PM [facility] Neutrophils Absolute 13.17(H) 1.50 - 7.00 K/mcL LAB HEMETOLOGY METHOD 06/05/2025 1:59 PM [facility] Lymphocytes Absolute 1.17 1.00 - 5.00 K/mcL LAB HEMETOLOGY METHOD 06/05/2025 1:59 PM EDT [facility] Monocytes Absolute 0.41 0.20 - 1.00 K/mcL LAB HEMETOLOGY METHOD 06/05/2025 1:59 PM EDT [facility] Eosinophils Absolute 0.01 0.00 - 0.50 K/mcL LAB HEMETOLOGY METHOD 06/05/2025 1:59 PM EDT [facility] Basophils Absolute 0.05 0.00 - 0.20 K/[facility] LAB HEMETOLOGY METHOD 06/05/2025 1:59 PM EDT [facility] Immature Granulocytes Absolute 0.04(H) 0.00 - 0.03 K/[facility] LAB HEMETOLOGY METHOD 06/05/2025 1:59 PM EDT [facility] Blood Venous blood specimen / Unknown Venipuncture / Unknown 06/05/2025 1:22 PM EDT 06/05/2025 1:50 PM EDT Dwight Restrepo MD LAB BLOOD ORDERABLES Aminata l Result [facility] [address] [place] [address], [place] [phone] * hCG, serum, qualitative (06/05/2025 1:22 PM EDT) hCG Qual Negative Negative 06/05/2025 3:03 PM EDT [facility] Blood Venous blood specimen / Unknown Venipuncture / Unknown 06/05/2025 1:22 PM EDT 06/05/2025 1:50 PM EDT Dwight Restrepo MD LAB BLOOD ORDERABLES Aminata l Result [facility] [address] [place] [address], [place] [phone] * Lipase (06/05/2025 1:22 PM EDT) [facility] Lipase 16 13 - 75 unit/L LAB CHEMISTRY METHOD 06/05/2025 3:00 PM T [facility] Blood Venous blood specimen / Unknown Venipuncture / Unknown 06/05/2025 1:22 PM EDT 06/05/2025 1:50 PM EDT us Dwight Restrepo MD LAB BLOOD ORDERABLES Aminata l Result [facility] [address] [place] [address], [place] [phone] * (ABNORMAL) Comprehensive Metabolic Panel (CMP) (06/05/2025 1:22 PM EDT) [facility] Sodium 138 133 - 145 mmol/L LAB CHEMISTRY METHOD 06/05/2025 3:03 PM [facility] Potassium 3.8 3.5 - 5.5 mmol/L LAB CHEMISTRY METHOD 06/05/2025 3:03 PM [facility] Chloride 104 96 - 110 mmol/L LAB CHEMISTRY METHOD 06/05/2025 3:03 PM [facility] CO2 20(L) 21 - 32 mmol/L LAB CHEMISTRY METHOD 06/05/2025 3:03 PM [facility] Anion Gap 14(H) 3 - 11 LAB CHEMISTRY METHOD 06/05/2025 3:03 PM [facility] Glucose 120(H) 70 - 100 mg/dL LAB CHEMISTRY METHOD 06/05/2025 3:03 PM [facility] BUN 10 5 - 25 mg/dL LAB CHEMISTRY METHOD 06/05/2025 3:03 PM [facility] Creatinine 0.78 0.50 - 1.10 mg/dL LAB CHEMISTRY METHOD 06/05/2025 3:03 PM [facility] eGFR 106 >=60 mL/min/1. 73m2 LAB CHEMISTRY METHOD 06/05/2025 3:03 PM [facility] Comment:Calculation based on the Chronic Kidney Disease Epidemiology Collaboration (CKD-EPI) equation refit without adjustment for race. BUN/Creatinine Ratio 12.8 LAB CHEMISTRY METHOD 06/05/2025 3:03 PM [facility] Calcium 9.9 8.5 - 10.5 mg/dL LAB CHEMISTRY METHOD 06/05/2025 3:03 PM [facility] AST (SGOT) 21 10 - 42 unit/L LAB CHEMISTRY METHOD 06/05/2025 3:03 PM [facility] ALT (SGPT) 27 10 - 60 unit/L LAB CHEMISTRY METHOD 06/05/2025 3:03 PM [facility] Alkaline Phosphatase 88 42 - 121 unit/L LAB CHEMISTRY METHOD 06/05/2025 3:03 PM [facility] Total Protein 7.8 6.0 - 8.0 g/dL LAB CHEMISTRY METHOD 06/05/2025 3:03 PM [facility] Albumin 4.6 3.2 - 5.0 g/dL LAB CHEMISTRY METHOD 06/05/2025 3:03 PM [facility] Total Bilirubin 0.6 0.0 - 1.4 mg/dL LAB CHEMISTRY METHOD 06/05/2025 3:03 PM [facility] Blood Venous blood specimen / Unknown Venipuncture / Unknown 06/05/2025 1:22 PM EDT 06/05/2025 1:50 PM EDT us Dwight Restrepo MD LAB BLOOD ORDERABLES Aminata l Result [facility] [address], [place] [address] [phone] from Last 3 Months Insurance MEDICAID - [place] Care Teams Machine Stuffer Automatic Relationship Specialty Start Date End Date Carlos Madison MD [address] [facility] Cvo Enrollment [address] [place] [phone] PCP - General Internal Medicine 06/05/25
[2025-06-08] MEDS: Lactated Ringers 1,000 ML 999 ML IV (13:46)
[2025-06-08 13:59] LABS: Lipase 15 U/L (8-78)
[2025-06-08 14:00] VITALS: BP 145/79; PULSE 65; RESP 16; TEMP 36.8; O2SAT 97
[2025-06-08 15:29] VITALS: BP 145/79; PULSE 65; RESP 16; TEMP 36.8; O2SAT 97
== END 2025-06-08 15:30 | disposition home or self-care (01) ==
PROVIDERS: Emergency Medicine; Registered Nurse Emergency; Emergency Provider Emergency Medicine Emergency Medical Services; PCP Physician Assistant Medical
DX: R11.2 Nausea with vomiting, unspecified (principal); F12.988 Cannabis use, unspecified with other cannabis-induced disorder
CPT/HCPCS: 36415; 80053; 81001; 83690; 84702; 85025; 86140; 96361; 96374; 99284; 99285; J1790; J7120